=== PATIENT | male | born 1935 | race Caucasian/White ===

== ENCOUNTER 2018-01-07 11:47 | Observation (INO) ==
--- NOTE | 2018-01-07 11:58 | ED ---
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 Patient states that he does not have a primary care physician locally, that he only follows up with Dr. Ponce chew his oncologist. Patient has had dyspnea worsening progressively over the past week or so, to the point now that he has to increase his 2 L nasal cannula home oxygen to 4 L and has had a decrease in his ability to perform activities of daily living. Generalized weakness associated with copious amount of productive whitish sputum , denied fever. MD Complaint: Reports shortness of breath Onset (ago): day(s) (3) Context: Reports other (Worsening) Severity: moderate Consistency/Duration: progressively worsening Relieving factors: oxygen and upright position Exacerbating factors: lying flat and exertion Known history of: Reports congestive heart failure Associated symptoms: Reports denies other symptoms Treatment prior to arrival: Reports oxygen Related Data Home Medications Medication Instructions Recorded Confirmed Unable to Obtain Home Meds 01/07/18 01/07/18 Allergies Allergy/AdvReac Type Severity Reaction Status Date / Time penicillin G Allergy Severe SWELLS UP Verified 01/07/18 11:48 clindamycin Allergy Unknown Swelling Verified 01/07/18 11:48 Review of Systems ROS: all other systems reviewed are negative PMFSH History History Provided By: Patient Medical History Medical History Bilateral cataracts (Acute) CLL (chronic lymphocytic leukemia) (Acute) History of chemotherapy (Acute) History of kidney cancer (Acute) History of nephrectomy, unilateral (Acute) Lung abnormality (Acute) Surgical History Surgical History History of Agustin-en-Y gastric bypass (Acute) Hx of right knee surgery (Acute) Social History Social History Substance History: No History of Abuse Smoking Status: Former smoker How Often Do You Have a Drink Containing Alcohol: Never Recent Travel in [facility] within the Last 8 Weeks: No Recent Out of Country Travel within the Last 8 Weeks: No Exam Narrative Exam Narrative: GENERAL: Elderly male oxygen dependent wheelchair- bound had difficulty transferring himself from wheelchair to gurney and required nearly full assistance (high fall risk). SKIN: Warm and dry. HEAD: Atraumatic. Normocephalic. EYES: Pupils equal and round. No scleral icterus. No injection or drainage. ENT: No nasal bleeding or discharge. Mucous membranes pink and moist. NECK: Trachea midline. No JVD. CARDIOVASCULAR: Irregularly irregular rhythm non-tachycardic rate . no rubs or gallops RESPIRATORY: No accessory muscle use. Diffuse rhonchi bilaterally on auscultation. Tidal volume decreased bilaterally. GASTROINTESTINAL: Abdomen soft, non-tender, nondistended. No rebound or guarding MUSCULOSKELETAL: Extremities without clubbing, cyanosis, or 3+ pitting edema to bilateral lower extremities extending up to his scrotum . No obvious deformities. Patient is wearing below the knee TOYIN stockings NEUROLOGICAL: Awake and alert. No obvious cranial nerve deficits. Motor grossly within normal limits. four out of 5 muscle strength in the arms and legs. Normal speech. PSYCHIATRIC: Appropriate mood and affect; insight and judgment normal. Course Initial Documented Vital Signs Temperature 97.5 F L 01/07/18 11:49 Pulse Rate 65 01/07/18 11:49 Respiratory Rate 18 01/07/18 11:49 Blood Pressure 131/62 01/07/18 11:49 Pulse Oximetry 96 01/07/18 11:49 Last Documented Vital Signs Temperature 97.5 F L 01/07/18 11:49 Pulse Rate 76 01/07/18 14:38 Respiratory Rate 18 01/07/18 14:38 Blood Pressure 122/56 L 01/07/18 14:38 Pulse Oximetry 99 01/07/18 14:38 Critical Care Time Critical Care Time: Yes Total Critical Care Time: 60 Attestation: Aggregate critical care time was [60] minutes. Time to perform other separately billable procedures was not included in the critical care time. My time did not include minutes spent treating any other patients simultaneously or on activities that did not directly contribute to the patient's treatment. The services I provided to this patient were to treat and/or prevent clinically significant deterioration I provided critical care services requiring my management, as noted below: Chart data review, documentation time, medication orders and management, vital sign assessments/reviewing monitor data, ordering and reviewing lab tests, ordering and interpreting/reviewing x-rays and diagnostic studies, care of the patient and discussion of the patient with the admitting physicians. Medical Decision Making MDM Narrative Medical decision making narrative: The patient had blood work performed by Dr. Ponce on January 05 showing a WBC of 32,000 hemoglobin and hematocrit of 8.9/ 27.7 platelet count of 138 lymphocytes shift of 81% Sodium 125 potassium 4.4, chloride 83 bicarb 36 BUN 16 creatinine 0.5 calcium 8 random glucose 128 creatinine clearance estimated 176 with an 85-125 be in the normal range. LDH of 140 which is within the normal range of 87 1, normal AST ALT alk phos and bilirubin. INR 1.9 patient is on Coumadin Today the patient has a leukocytosis of 34.8, H&H stable at 8.7/26.6, relative thrombocytopenia 133,000 similar to an relatively unchanged numbers when compared with an January 05 lab test done by Dr[address] Ponce. Hyponatremia 125, creatinine 1.46 with a GFR greater than 89 Normal liver enzymes. neg cardiac enzymes. INR 2.7 Chest x-ray read by radiologist as chronic interstitial changes within the parenchyma. Heart is mildly enlarged. Xlwkis-k-Acyl in place in the right chest. dr graff contacted to discuss case , in particular the need for possible antibiotics due to leukocytosis or if its related to leukemia and can be witheld and continue evaluation original call at [phone].... At 1445 Dr. Manley called back, she is treasury manager/oncologist oracle manufacturing consultant, who is able to review Dr. Ponce's notes and the laboratory values for this patient and in her opinion was more likely to be related to the leukemia and not to be in any leukostasis. This patient has gotten as high as a million leukocytes in the past and has received treatment twice with good results. thus far no findings of pneumonia, uti, or flu...negative lactic acid on evaluation. States that his primary care in [place] does not provide him with a prescription for Lasix on a regular basis because the patient had a nephrectomy and has a solitary kidney. So essentially the primary waits until the patient is an exacerbation to provide him with a few doses of Lasix. On chart review going back to 2005 in 2013 imaging are of a VQ scan renal ultrasound chest CT however no evidence of any echocardiogram or any other studies to confirm the patient's history of CHF..... (Of note the CT chest performed on the patient back in 2013 revealed airspace consolidation in the right lower lobe associated small right pleural effusion with parietal pleural thickening as well as enlarged bilateral axillary lymph nodes and a moderate splenomegaly) Medical Screen Exam Complete: Yes Emergency Medical Condition: Yes Medical Records Medical records reviewed: Yes I reviewed the patient's medical records. Patient was seen by Dr. Ponce on April 2017 he was noted to have a previous history of hypertension diabetes type 2 congestive heart failure BPH, right lower extremity DVT, arthritis, chronic lymphocytic leukemia, renal cell cancer left nephrectomy 2005, Patient has allergies to penicillin Lab Data Result diagrams: 01/07/18 12:55 01/07/18 12:55 Lab Results 01/07/18 01/07/18 01/07/18 Range/Units 12:55 12:55 13:35 CBC w Diff Slide review pending WBC 34.8 H (4.0-11.0) th/mm3 RBC 2.88 L (4.50-5.90) mil/mm3 Hgb 8.7 L (13.0-17.0) gm/dL Hct 26.6 L (39.0-51.0) % MCV 92.2 (80.0-100.0) fL MCH 30.1 (27.0-34.0) pg MCHC 32.7 (32.0-36.0) % RDW 14.8 (11.6-17.2) % Plt Count 133 L (150-450) th/mm3 MPV 7.0 (7.0-11.0) fL Neut % (Auto) 10.0 L (16.0-70.0) % Lymph % (Auto) 87.2 H (9.0-44.0) % [place] % (Auto) 2.1 (0.0-8.0) % Eos % (Auto) 0.0 (0.0-4.0) % Baso % (Auto) 0.7 (0.0-2.0) % Neut # (Auto) 3.5 (1.8-7.7) th/mm3 Lymph # (Auto) 30.4 H (1.0-4.8) th/mm3 [place] # (Auto) 0.7 (0.0-0.9) th/mm3 Eos # (Auto) 0.0 (0.0-0.4) th/mm3 Baso # (Auto) 0.2 (0.0-0.2) th/mm3 WBC Differential Manual diff final Seg Neuts % (Manual) 10 L (16-70) % Lymphocytes % (Manual) 89 H (9-44) % Monocytes % (Manual) 1 (0-8) % Abs Neuts (Manual) 3.5 (1.8-7.7) th/mm3 Differential Comment . Smudge Cells Present H (None) Platelet Estimate Low L (Normal) Platelet Morphology Normal (Normal) Basophilic Stippling Moderate H (None) Ovalocytes 1+ H (None) Rouleaux Present H (None) PT (9.8-11.6) sec INR Ratio APTT (23.4-31.7) sec Sodium 125 L (136-145) meq/L Potassium 4.4 (3.5-5.1) meq/L Chloride 83 L (98-107) meq/L Carbon Dioxide 34.0 H (21.0-32.0) meq/L Anion Gap 8 (5-15) meq/L BUN 16 (7-18) mg/dL Creatinine 0.46 L (0.60-1.30) mg/dL Estimated GFR Greater than 89 (>89) mL/min Random Glucose 111 H (74-106) mg/dL Lactic Acid 0.5 (0.4-2.0) mmol/L Calcium 7.9 L (8.5-10.1) mg/dL Total Bilirubin 0.7 (0.2-1.0) mg/dL AST 16 (15-37) U/L ALT 12 (12-78) U/L Alkaline Phosphatase 93 (45-117) U/L Total Creatine Kinase 40 (39-308) U/L Troponin I Less than 0.02 L (0.02-0.05) ng/mL Total Protein 5.1 L (6.4-8.2) g/dL Albumin 3.0 L (3.4-5.0) g/dL 01/07/18 Range/Units 13:35 CBC w Diff WBC (4.0-11.0) th/mm3 RBC (4.50-5.90) mil/mm3 Hgb (13.0-17.0) gm/dL Hct (39.0-51.0) % MCV (80.0-100.0) fL MCH (27.0-34.0) pg MCHC (32.0-36.0) % RDW (11.6-17.2) % Plt Count (150-450) th/mm3 MPV (7.0-11.0) fL Neut % (Auto) (16.0-70.0) % Lymph % (Auto) (9.0-44.0) % [place] % (Auto) (0.0-8.0) % Eos % (Auto) (0.0-4.0) % Baso % (Auto) (0.0-2.0) % Neut # (Auto) (1.8-7.7) th/mm3 Lymph # (Auto) (1.0-4.8) th/mm3 [place] # (Auto) (0.0-0.9) th/mm3 Eos # (Auto) (0.0-0.4) th/mm3 Baso # (Auto) (0.0-0.2) th/mm3 WBC Differential Seg Neuts % (Manual) (16-70) % Lymphocytes % (Manual) (9-44) % Monocytes % (Manual) (0-8) % Abs Neuts (Manual) (1.8-7.7) th/mm3 Differential Comment Smudge Cells (None) Platelet Estimate (Normal) Platelet Morphology (Normal) Basophilic Stippling (None) Ovalocytes (None) Rouleaux (None) PT 27.5 H (9.8-11.6) sec INR 2.7 Ratio APTT 45.5 H (23.4-31.7) sec Sodium (136-145) meq/L Potassium (3.5-5.1) meq/L Chloride (98-107) meq/L Carbon Dioxide (21.0-32.0) meq/L Anion Gap (5-15) meq/L BUN (7-18) mg/dL Creatinine (0.60-1.30) mg/dL Estimated GFR (>89) mL/min Random Glucose (74-106) mg/dL Lactic Acid (0.4-2.0) mmol/L Calcium (8.5-10.1) mg/dL Total Bilirubin (0.2-1.0) mg/dL AST (15-37) U/L ALT (12-78) U/L Alkaline Phosphatase (45-117) U/L Total Creatine Kinase (39-308) U/L Troponin I (0.02-0.05) ng/mL Total Protein (6.4-8.2) g/dL Albumin (3.4-5.0) g/dL Imaging Data Radiologist's impression: Chest X-Ray 01/07/18 11:53 CONCLUSION: Chronic interstitial changes within the parenchyma. Mgoard-l-Gsjh in good position. ECG Data EKG Prior to Arrival: No Attestation: I personally reviewed and interpreted this ECG as follows: Prior ECG tracings: not available for review Interpretation: Atrial fibrillation with slow rate estimated in the 50s, no acute ST elevation AK pattern noted Discharge Plan Discharge Disposition Patient Disposition: 30 Still Patient Discharge Condition Condition: Fair Discharge Details Diagnosis: Dyspnea on minimal exertion, Hyponatremia, Generalized muscle weakness Physicians Team ED Provider: Cameron Xiong Attending Provider: Chris Arizmendi Status ED Status: Admitted Observation Patient
[2018-01-07 13:09] LABS: Baso # (Auto) 0.2 th/mm3 (0.0-0.2); Baso % (Auto) 0.7 % (0.0-2.0); Hematocrit 26.6 % (39.0-51.0); Hemoglobin 8.7 gm/dL (13.0-17.0); Lymph # (Auto) 30.4 th/mm3 (1.0-4.8); Lymph % (Auto) 87.2 % (9.0-44.0); Mean Corpuscular HGB Conc 32.7 % (32.0-36.0); Mean Corpuscular Hemoglobin 30.1 pg (27.0-34.0); Mean Corpuscular Volume 92.2 fL (80.0-100.0); Mono # (Auto) 0.7 th/mm3 (0.0-0.9); Mono % (Auto) 2.1 % (0.0-8.0); Neut # (Auto) 3.5 th/mm3 (1.8-7.7); Platelet Count 133 th/mm3 (150-450); Red Blood Count 2.88 mil/mm3 (4.50-5.90); Red Cell Distribution Width 14.8 % (11.6-17.2); White Blood Count 34.8 th/mm3 (4.0-11.0)
[2018-01-07 13:17] LABS: Chloride 83 meq/L (98-107); Potassium 4.4 meq/L (3.5-5.1); Sodium 125 meq/L (136-145)
[2018-01-07 13:20] LABS: Calcium 7.9 mg/dL (8.5-10.1)
[2018-01-07 13:21] LABS: Anion Gap 8 meq/L (5-15); Blood Urea Nitrogen 16 mg/dL (7-18); Glucose,Random 111 mg/dL (74-106)
[2018-01-07 13:24] LABS: Alanine Aminotransferase 12 U/L (12-78); Aspartate Aminotransferase 16 U/L (15-37); Glomerular Filtration Rate Greater Than 89 mL/min (>89)
[2018-01-07 13:25] LABS: Total Protein 5.1 g/dL (6.4-8.2)
[2018-01-07 13:27] LABS: Alkaline Phosphatase 93 U/L (45-117)
[2018-01-07 13:30] LABS: Basophilic Stippling Moderate; Lymphocytes 89 % (9-44); Monocytes 1 % (0-8); Ovalocytes 1+
--- NOTE | 2018-01-07 13:30 | XR ---
EXAM DATE: 01/07/2018 12:26 PM EST AGE/SEX: 82 years / Male INDICATIONS: Shortness of breath. CLINICAL DATA: This is the patient's initial encounter. Patient reports that signs and symptoms have been present for 1 day and indicates a pain score of 0/10. MEDICAL/SURGICAL HISTORY: . Lymphocytic leukemia. Kidney cancer. . Nephrectomy. Infusaport. COMPARISON: [facility] – [place], CHEST SINGLE AP, 12/15/2013. . FINDINGS: There is an Ogimir-p-Hedj in place in the right chest. The port appears in satisfactory position. The heart is mildly enlarged. There are diffuse chronic bring interstitial changes. The visualized lisa ny structures demonstrate degenerative changes but are otherwise intact. CONCLUSION: Chronic interstitial changes within the parenchyma. Bttudf-x-Qhgz in good position. Electronically signed by: Jayro Lemus MD 01/07/2018 1:28 PM EST
[2018-01-07 13:31] LABS: Platelet Morphology Normal (Normal); Rouleaux Present; Smudge Cells Present
[2018-01-07 13:34] LABS: Creatine Kinase 40 U/L (39-308)
[2018-01-07 14:17] LABS: Activated Partial Thrombo Time 45.5 sec (23.4-31.7); INR 2.7 Ratio; Prothrombin Time 27.5 sec (9.8-11.6)
[2018-01-07] MEDS ORDERED: Levofloxacin 250 mg Premix Inj 250 MG/50 ML PIGGYBACK IV.SIG ONE (15:23)
[2018-01-07] MEDS ORDERED: Acetaminophen 325 MG Tablet PO PRN (15:50)
--- NOTE | 2018-01-07 16:21 | P.HP ---
History of Present Illness Primary Care Physician: Reed Davis Chief Complaint: Dyspnea History of Present Illness: This is an 82-year-old male patient with a known medical history of CLL, history of kidney cancer status post nephrectomy and chronic respiratory failure on home oxygen who presented to the ED with worsening shortness of breath especially with exertion. Patient also admits to increasingly worsening bilateral lower extremity swelling. It is questionable whether patient has a history of congestive heart failure, patient was recently prescribed Lasix twice weekly for increasing swelling in his lower legs. It is questionable whether there is been a official diagnosis. He does also complain of generalized weakness as well as productive cough. Patient and his are here from [place], they're snowbirds and spent 6 months here locally. He does have a history of CLL, follows with oncologist Dr. Bains, was last seen today and lab work done patient states he is unable to walk several feet without becoming shortness of breath, he uses 2 L nasal cannula of home oxygen and has been requiring increased use over the past couple days. It should be noted the patient does not follow with a tomato grader at home either, states that he does not know why he is on home oxygen, denies a history of COPD. Patient also does have a history of left lower extremity DVT over 30 years ago with antiphospholipid syndrome for which he is on Coumadin therapy. Will attempt to obtain records from his PCP in [place]. - Diagnosis (1) CLL (chronic lymphocytic leukemia) (2) Dyspnea on minimal exertion (3) Hyponatremia (4) Generalized muscle weakness Review of Systems All other systems reviewed negative except as stated in HPI PMFSH - History History Provided By: Patient - Medical History Medical History: Medical History (Last Reviewed 01/07/18 @ 17:23 by Mary Alice Meza) Bilateral cataracts CLL (chronic lymphocytic leukemia) History of chemotherapy History of kidney cancer History of nephrectomy, unilateral Lung abnormality - Surgical History Surgical History: Surgical History (Last Reviewed 01/07/18 @ 17:23 by Mary Alice Meza) History of Agustin-en-Y gastric bypass Hx of right knee surgery - Family History Family History: Family History (Last Updated 01/07/18 @ 17:23 by Mary Alice Meza) Other Family history non-contributory - Social History I have reviewed the patient's Social History: Yes - Tobacco History Smoking Status: Former smoker - Alcohol History How Often Do You Have a Drink Containing Alcohol: Never - Substance Use History Substance History: No History of Abuse - Travel History Recent Travel in the [place] Within the Last 8 Weeks: No Recent Travel Out of the Country Within the Last 8 Weeks: No - Immunization History Tetanus Immunization: Unsure Medications and Allergies Active Medications: Active Medications Acetaminophen (Tylenol) 650 mg PO Q4H PRN PRN Reason: Temp > 100.4 Levofloxacin/Dextrose (Levaquin 250 Mg Premix Inj) 250 mg in 50 mls @ 50 mls/ hr IV.SIG ONCE ONE Stop: 01/07/18 16:22 Last Admin: 01/07/18 15:46 Dose: 50 mls/hr Ondansetron HCl (Zofran Inj) 4 mg IV.PUSH Q6H PRN PRN Reason: NAUSEA OR VOMITING Sodium Chloride (Ns Flush) 2 ml IV.FLUSH BID ROSELYN Sodium Chloride (Ns Flush) 2 ml IV.FLUSH PRN PRN PRN Reason: FLUSH AFTER USING IV ACCESS Allergies Allergy/AdvReac Type Severity Reaction Status Date / Time penicillin G Allergy Severe SWELLS UP Verified 01/07/18 11:48 clindamycin Allergy Unknown Swelling Verified 01/07/18 11:48 Home Medications Medication Instructions Recorded Confirmed Type losartan-hydrochlorothiazide 0.5 tab PO DAILY 01/07/18 01/07/18 History tamsulosin 0.4 mg PO DAILY 01/07/18 01/07/18 History warfarin 7.5 mg PO EVERY OTHER DAY 01/07/18 01/07/18 History warfarin 10 mg PO EVERY OTHER DAY 01/07/18 01/07/18 History Exam Vital signs: Vital Signs 01/07/18 11:49 01/07/18 12:26 01/07/18 14:38 Temperature 97.5 F L Pulse Rate 65 57 L 76 Respiratory Rate 18 18 Blood Pressure 131/62 122/56 L Pulse Oximetry 96 99 99 Intake & Output 01/06/18 01/07/18 01/07/18 18:59 06:59 18:59 Weight 94 kg Narrative: GENERAL: Well-developed, well-nourished patient in NAD. On supplemental o2. SKIN: Warm and dry. No rash. Right chest port in place, clean dry and intact. HEAD: Normocephalic. Atraumatic. EYES: Pupils equal and round. No scleral icterus. No injection or drainage. ENT: No nasal bleeding or discharge. Mucous membranes pink and moist. NECK: Supple. Trachea midline. CARDIOVASCULAR: Regular rate and rhythm. S1, S2 noted. RESPIRATORY: Crackles in posterior lower base. Rhonchi throughout. Breath sounds equal bilaterally. Barrel chest. GASTROINTESTINAL: Abdomen soft, non-tender. Normoactive bowel sounds x4. MUSCULOSKELETAL: No obvious deformities. Extremities without clubbing, cyanosis. Bilateral lower extremity edema 3+. NEUROLOGICAL: Awake and alert. No obvious cranial nerve deficits. Motor grossly within normal limits. 5/5 muscle strength in bilateral upper and lower extremities. Normal speech. PSYCHIATRIC: Appropriate mood and affect; insight and judgment normal. Results - Labs CBC & Chem 7: 01/07/18 12:55 01/07/18 12:55 Labs: Laboratory Results - last 24 hr 01/07/18 01/07/18 01/07/18 12:55 12:55 13:35 CBC w Diff Slide review pending WBC 34.8 H RBC 2.88 L Hgb 8.7 L Hct 26.6 L MCV 92.2 MCH 30.1 MCHC 32.7 RDW 14.8 Plt Count 133 L MPV 7.0 Neut % (Auto) 10.0 L Lymph % (Auto) 87.2 H [place] % (Auto) 2.1 Eos % (Auto) 0.0 Baso % (Auto) 0.7 Neut # (Auto) 3.5 Lymph # (Auto) 30.4 H [place] # (Auto) 0.7 Eos # (Auto) 0.0 Baso # (Auto) 0.2 WBC Differential Manual diff final Seg Neuts % (Manual) 10 L Lymphocytes % (Manual) 89 H Monocytes % (Manual) 1 Abs Neuts (Manual) 3.5 Differential Comment . Smudge Cells Present H Platelet Estimate Low L Platelet Morphology Normal Basophilic Stippling Moderate H Ovalocytes 1+ H Rouleaux Present H PT INR APTT Sodium 125 L Potassium 4.4 Chloride 83 L Carbon Dioxide 34.0 H Anion Gap 8 BUN 16 Creatinine 0.46 L Estimated GFR Greater than 89 Random Glucose 111 H Lactic Acid 0.5 Calcium 7.9 L Total Bilirubin 0.7 AST 16 ALT 12 Alkaline Phosphatase 93 Total Creatine Kinase 40 Troponin I Less than 0.02 L Total Protein 5.1 L Albumin 3.0 L 01/07/18 13:35 CBC w Diff WBC RBC Hgb Hct MCV MCH MCHC RDW Plt Count MPV Neut % (Auto) Lymph % (Auto) [place] % (Auto) Eos % (Auto) Baso % (Auto) Neut # (Auto) Lymph # (Auto) [place] # (Auto) Eos # (Auto) Baso # (Auto) WBC Differential Seg Neuts % (Manual) Lymphocytes % (Manual) Monocytes % (Manual) Abs Neuts (Manual) Differential Comment Smudge Cells Platelet Estimate Platelet Morphology Basophilic Stippling Ovalocytes Rouleaux PT 27.5 H INR 2.7 APTT 45.5 H Sodium Potassium Chloride Carbon Dioxide Anion Gap BUN Creatinine Estimated GFR Random Glucose Lactic Acid Calcium Total Bilirubin AST ALT Alkaline Phosphatase Total Creatine Kinase Troponin I Total Protein Albumin - Imaging Impressions Chest X-Ray 01/07/18 11:53 CONCLUSION: Chronic interstitial changes within the parenchyma. Wymqfr-a-Dahu in good position. Caprini VTE Risk Assessment Caprini VTE Risk Assessment: Moderate/High Risk (score >= 2) Caprini Risk Assessment Model: Point Value = 1 Point Value = 2 Point Value = 3 Point Value = 5 Age 41-60 Minor surgery BMI > 25 kg/m2 Swollen legs Varicose veins or History of unexplained or recurrent spontaneous Oral contraceptives or hormone replacement Sepsis (< 1 month) Serious lung disease, including pneumonia (< 1 month) Abnormal pulmonary function Acute myocardial infarction Congestive heart failure (< 1 month) History of inflammatory bowel disease Medical patient at bed rest Age 61-74 Arthroscopic surgery Major open surgery (> 45 min) Laparoscopic surgery (> 45 min) Malignancy Confined to bed (> 72 hours) Immobilizing plaster cast Central venous access Age >= 75 History of VTE Family history of VTE Factor V Leiden Prothrombin [id number] Lupus anticoagulant Anticardiolipin antibodies Elevated serum homocysteine Heparin-induced thrombocytopenia Other congenital or acquired thrombophilia Stroke (< 1 month) Elective arthroplasty Hip, pelvis, or leg fracture Acute spinal cord injury (< 1 month) Prophylaxis Regimen: Total Risk Factor Score Risk Level Prophylaxis Regimen 0-1 Low Early ambulation 2 Moderate Order ONE of the following: *Sequential Compression Device (SCD) *Heparin 5000 units SQ BID 3-4 Higher Order ONE of the following medications: *Heparin 5000 units SQ TID *Enoxaparin/Lovenox 40 mg SQ daily (WT < 150 kg, CrCl > 30 mL/min) *Enoxaparin/Lovenox 30 mg SQ daily (WT < 150 kg, CrCl > 10-29 mL/min) *Enoxaparin/Lovenox 30 mg SQ BID (WT < 150 kg, CrCl > 30 mL/min) AND/OR *Sequential Compression Device (SCD) 5 or more Highest Order ONE of the following medications: *Heparin 5000 units SQ TID (Preferred with Epidurals) *Enoxaparin/Lovenox 40 mg SQ daily (WT < 150 kg, CrCl > 30 mL/min) *Enoxaparin/Lovenox 30 mg SQ daily (WT < 150 kg, CrCl > 10-29 mL/min) *Enoxaparin/Lovenox 30 mg SQ BID (WT < 150 kg, CrCl > 30 mL/min) AND *Sequential Compression Device (SCD) Assessment and Plan - Assessment (1) CLL (chronic lymphocytic leukemia) Code(s): C91.90 - Lymphoid leukemia, unspecified not having achieved remission Status: Acute (2) Dyspnea on minimal exertion Code(s): R06.09 - Other forms of dyspnea Status: Acute (3) Hyponatremia Code(s): E87.1 - Hypo-osmolality and hyponatremia Status: Acute (4) Generalized muscle weakness Code(s): M62.81 - Muscle weakness (generalized) Status: Acute - Plan This is an 82-year-old male patient who presented to the ED with complaints of worsening shortness of breath especially with exertion. Possible congestive heart failure, unknown type with exacerbation -Presents with a 1-week complaint of worsening shortness of breath with exertion and worsening bilateral lower extremity swelling. BNP on presentation 176. -CXR reviewed showing interstitial changes. On exam, crackles are present. Appears to be fluid overloaded. -Consulted senior relationship manager, does not follow with a senior relationship manager. Input and recommendations pending. -Lasix 20 mg IV given in ED. Started daily. Monitor intake and output. Strict I& O. Fluid restriction 1.5L daily. -ECHO ordered and pending. Follow. Chronic respiratory failure on home oxygen, 2L [place] Questionable history of COPD Bronchitis with productive cough, questionable pneumonia -CXR reviewed, findings as above. -Does not follow with a tomato grader, has been placed on home O2 this year. Unknown reason why per patient. -Consult placed to tomato grader, input and recommendations pending. -Sputum culture ordered. -Was placed on Levaquin in ED. Continued. -Duonebs as needed for shortness of breath. -Blood cultures ordered and pending. Follow. -Chest CT ordered, pending. Follow. History of CLL Chronic leukocytosis -Consulted Dr. Bains, whom he follows with outpatient. Appreciate input and recommendations. History of renal cell carcinoma status post nephrectomy -Stable kidney function. -Avoid nephrotoxins. -Monitor closely especially being on diuretics. History of DVT History of antiphospholipid syndrome -Continue Coumadin. INR therapeutic. DVT Prophylaxis: SCDs, Coumadin.
[2018-01-07] MEDS ORDERED: Warfarin Consult Pharmacy OTHER PRN (16:23)
[2018-01-07 19:40] LABS: Bilirubin,Urine Negative (Negative); Clarity,Urine Clear (Clear); Color,Urine Yellow (Yellw/Straw); Glucose,Urine (UA) Negative (Negative); Leukocyte Esterase,Urine Negative (Negative); Nitrite,Urine Negative (Negative); Urobilinogen,Urine 0.2 mg/dL (Less than 2)
[2018-01-07 19:46] LABS: Squamous Epithelial Cell,Urine 0-5 /hpf (0-5)
--- NOTE | 2018-01-07 20:29 | MB ---
cc: Manuelito Bains MD DATE: 01/07/2018 REASON FOR CONSULTATION: Oncology consult to render opinion regarding patient with chronic lymphocytic leukemia, admitted with heart failure. HISTORY OF PRESENT ILLNESS: The patient is a very pleasant 82-year-old male with history of chronic lymphocytic leukemia and renal cell carcinoma, status post left nephrectomy, presented to the office today for followup. He just came back from [place] a few weeks ago. The patient and his are both very poor historian. The last time I saw the patient in the summer, he was not on oxygen and he was quite functional. Apparently over the summer, he has developed worsening shortness of breath and had been admitted to the hospital in [place], but he could not tell me why. He was then started on oxygen. Over the last few weeks, he stated that he has worsening shortness of breath and he is not able to get enough oxygen from his portable concentrator. He also has increased weakness and not very active. He came in with a wheelchair to the office and he could hardly talk due to shortness of breath. He stated is lower extremity has been swollen. He also endorse orthopnea and paroxysmal nocturnal dyspnea. He stated he was given a diuretic, but he has not started taking it. He was directed to the emergency room and subsequently admitted. PAST MEDICAL HISTORY: 1. Chronic lymphocytic leukemia, diagnosed in 2004. 2. Right lower extremity deep venous thrombosis. 3. Antiphospholipid antibody positive. 4. Osteoarthritis. 5. Benign prostatic hypertrophy. 6. Congestive heart failure. 7. Diabetes mellitus. 8. Hypertension. 9. Renal cell carcinoma. PAST SURGICAL HISTORY: 1. Left nephrectomy in 2005. 2. Gastric bypass surgery. 3. Port placement. 4. Tonsillectomy. 5. Right knee surgery. FAMILY HISTORY: Father had colon cancer. SOCIAL HISTORY: He had a [id number] smoking history, quit 35 years ago. Denies alcohol use. He lives with his . His spends his bell in the [place] area. ALLERGIES: PENICILLIN AND CLINDAMYCIN. CURRENT MEDICATIONS: 1. DuoNeb. 2. Lasix. 3. Flomax. 4. Warfarin. REVIEW OF SYSTEMS: CONSTITUTIONAL: As above. EYES: Negative. ENT: Negative. CARDIOVASCULAR: As above. RESPIRATORY: As above. GASTROINTESTINAL: Negative. GENITOURINARY: Negative. MUSCULOSKELETAL: Chronic joint ache. HEMATOLOGIC: As above. ENDOCRINE: Negative. DERMATOLOGIC: Negative. PSYCHIATRIC: Negative. NEUROLOGIC: Negative. PHYSICAL EXAMINATION: VITAL SIGNS: Temperature 97.5, blood pressure 113/51, O2 saturation 90% on 2 liters nasal cannula. GENERAL: He is alert, oriented x3. He is very weak. HEENT: Atraumatic, normocephalic. Pupils are equal, round, regular. Extraocular muscles are intact. No scleral icterus. Oropharynx dry mucosa. No lesion. NECK: No thyromegaly. No palpable mass. LYMPHATIC: No palpable cervical, clavicular, axillary, or inguinal lymph nodes. CARDIOVASCULAR: Irregularly irregular S1, S2. LUNGS: Diminished breath sounds in lung bases. ABDOMEN: Soft, nontender. Difficult to palpate liver or spleen. EXTREMITIES: He has 3+ lower extremity edema. No calf tenderness. SKIN: Decreased skin turgor. NEUROLOGIC: Nonfocal. LABORATORY DATA: WBC 34.8, hemoglobin 8.7, platelet count 133. INR 2.7, creatinine of 0.46, sodium 125. BNP of 176. ASSESSMENT AND PLAN: 1. Chronic lymphocytic leukemia diagnosed 2004. His white blood cell count trended to 160,00 to 2012 and he received Rituxan with good response. In 2017, he had relapsed disease and white blood cell count trending up to 100,000 and he received another course of Rituxan, again with good response. He has been monitored closely. Today, his white blood cell count trended up to 34,000, but I think it is partly a reactive process. We will continue to monitor him for now. 2. 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 His hemoglobin is relatively stable at 8.7. We will monitor him closely for signs of hemolysis. 3. Chronic thrombocytopenia due to chronic lymphocytic leukemia. His platelet count is still fluctuating. Clinically, he has no bleeding. 4. History of left renal cell carcinoma, clear cell type, status post left nephrectomy in 2005. He has no recurrent disease. 5. History of right lower extremity venous thrombosis. He has antiphospholipid antibody. He has been on Coumadin. His INR is therapeutic. No evidence of recurrent clot at this time. 6. Shortness of breath, which has been progressively getting worse over the last few weeks. He is in congestive heart failure. He has significant lower extremity edema. He was started on diuretic and his edema has improved. He is awaiting a cardiology evaluation. RECOMMENDATIONS: 1. Continue to monitor CBC. No intervention for chronic lymphocytic leukemia plan at this time. 2. Monitor for signs of hemolysis. 3. Continue management of congestive heart failure per primary team. 4. Discussed case with the primary team. Thank you CARLA Romero for asking me to see this patient. MD TALI Paez/em , 05:54 PM , 06:10 PM [email or web address]
--- NOTE | 2018-01-07 21:10 | CT ---
EXAM DATE: 01/07/2018 8:58 PM EST AGE/SEX: 82 years / Male INDICATIONS: Short of breath. Evaluate for pneumonia. CLINICAL DATA: This is the patient's initial encounter. Patient reports that signs and symptoms have been present for 4 - 6 days and indicates a pain score of 2/10. MEDICAL/SURGICAL HISTORY: Leukemia. Renal cell carcinoma. Deep venous thrombosis. Gastric bypass. Nephrectomy, left. RADIATION DOSE: 9.93 CTDI (mGy) COMPARISON: [facility] – [place], CT THORAX W/O CONTRAST, 12/03/2013. . TECHNIQUE: Multiple contiguous axial images were obtained through the chest without contrast. Image s were obtained in suspended respiration using multiple row detector helical technique. Using automa daria exposure control and adjustment of the mA and/or kV according to patient size, radiation dose was kept as low as reasonably achievable to obtain optimal diagnostic quality images. DICOM format imag e data is available electronically for review and comparison. FINDINGS: Lungs: The lungs are symmetrically aerated. There is mild consolidation in the posterior left lower lobe. There is consolidation in the right lower lobe with rounded appearance and several calcificatio ns most consistent with rounded atelectasis. Mediastinum: There is good visualization of the great vessels of the middle mediastinum. No evidenc e of mediastinal or hilar adenopathy/mass. The heart size is moderately enlarged. There are coronary artery calcifications. There are calcified mediastinal and hilar lymph nodes. Coronary artery calcifi cations are present under the Pleurae: There is a moderate-sized left pleural effusion and small right pleural effusion. Axillae: Unremarkable. Bony Structures: Osteopenia, degenerative change and scoliosis are noted. There are multiple subtle widespread lytic lesions noted in the vertebral bodies and ribs. Miscellaneous: The examination was extended to include the upper abdomen, and both adrenal glands ar e normal in size and configuration. CONCLUSION: 1. Multiple widespread lytic lesions in bones consistent with metastatic disease. 2. Moderate size left effusion and small right pleural effusion. 3. Area of apparent rounded atelectasis in the right lower lobe. This was present on the remote CT. 4. Mild consolidation in the left lower lobe which is new. This could represent an early pneumonia. 5. Moderate cardiomegaly with no evidence of pulmonary edema. Electronically signed by: Nick Escobar MD 01/07/2018 9:09 PM EST
[2018-01-08 06:10] LABS: Baso # (Auto) 0.6 th/mm3 (0.0-0.2); Baso % (Auto) 2.4 % (0.0-2.0); Eos % (Auto) 0.2 % (0.0-4.0); Hematocrit 25.3 % (39.0-51.0); Hemoglobin 8.3 gm/dL (13.0-17.0); Lymph # (Auto) 19.5 th/mm3 (1.0-4.8); Lymph % (Auto) 83.6 % (9.0-44.0); Mean Corpuscular HGB Conc 32.9 % (32.0-36.0); Mean Corpuscular Hemoglobin 30.2 pg (27.0-34.0); Mean Platelet Volume 7.4 fL (7.0-11.0); Mono # (Auto) 0.6 th/mm3 (0.0-0.9); Mono % (Auto) 2.4 % (0.0-8.0); Neut # (Auto) 2.7 th/mm3 (1.8-7.7); Neut % (Auto) 11.4 % (16.0-70.0); Platelet Count 119 th/mm3 (150-450); Red Blood Count 2.76 mil/mm3 (4.50-5.90); Red Cell Distribution Width 14.8 % (11.6-17.2); White Blood Count 23.4 th/mm3 (4.0-11.0)
[2018-01-08 06:16] LABS: Chloride 83 meq/L (98-107); Potassium 3.9 meq/L (3.5-5.1); Sodium 126 meq/L (136-145)
[2018-01-08 06:19] LABS: Prothrombin Time 29.8 sec (9.8-11.6)
[2018-01-08 06:20] LABS: Calcium 7.6 mg/dL (8.5-10.1)
[2018-01-08 06:21] LABS: Anion Gap 5 meq/L (5-15); Blood Urea Nitrogen 16 mg/dL (7-18); Carbon Dioxide 37.8 meq/L (21.0-32.0); Glucose,Random 109 mg/dL (74-106)
[2018-01-08 06:24] LABS: Glomerular Filtration Rate Greater Than 89 mL/min (>89)
[2018-01-08 06:45] LABS: Platelet Morphology Normal (Normal)
--- NOTE | 2018-01-08 07:26 | MB ---
cc: Esdras Baiely MD DATE: 01/08/2018 I have reviewed hospital records and spoke with the patient. HISTORY OF PRESENT ILLNESS: The patient is a pleasant 82-year-old white man I am seeing for possible congestive heart failure. The patient is a snowbird from [place]. He is followed by Dr. Bains for chronic lymphocytic leukemia and renal cell carcinoma. The patient has underlying lung disease and has been hospitalized in 2003 for this along with edema. Echocardiogram showed normal LV function at that point in time. He has chronic shortness of breath, which has been stable and uses oxygen at home. He noted that his oxygen was not enough when he would walk outside. He has chronic edema and elevates his leg and this may have been worse more recently. He has no other cardiac symptomatology. PAST MEDICAL HISTORY: 1. Atrial fibrillation/flutter, which has been on EKGs at this hospital stay and last, but he does not know about it. 2. Chronic lymphocytic leukemia. 3. Antiphospholipid antibody. 4. Renal cell carcinoma with left nephrectomy. 5. Distant diabetes. 6. Hypertension. 7. Benign prostatic hypertrophy. 8. Osteoarthritis. 9. Prior gastric bypass surgery with reversible. 10. Right knee surgery. 11. Tonsillectomy. FAMILY HISTORY: Noncontributory. SOCIAL HISTORY: He is and a distant smoker and does not drink. ALLERGIES: PENICILLIN, CLINDAMYCIN. He is chronically anticoagulated. He also has chronic anemia, which is hemolytic apparently. MEDICATIONS: List prior to admission included: 1. Tamsulosin. 2. Losartan/hydrochlorothiazide. 3. Warfarin. REVIEW OF SYSTEMS: Remarkable for occasional joint pain, generalized weakness and imbalance and some hearing and visual trouble. DIAGNOSTIC DATA: Chest x-ray showed mild cardiomegaly with chronic interstitial changes. CT of the chest showed multiple widespread lytic lesions, moderate size left and small right pleural effusion. Of note is he did have effusion tap in 2013, atelectasis and mild left lobe consolidation along with moderate cardiomegaly. EKG shows atrial fibrillation with controlled response and no significant changes from prior EKG. There are nonspecific T-wave changes. LABORATORY DATA: He is anemic with hematocrit 26.6 and platelet count of 133,000. INR 2.7. Sodium 125, potassium 4.4, creatinine 0.46. Liver transaminases normal. BNP mildly elevated at 176. Troponin negative. PHYSICAL EXAMINATION: GENERAL: On exam, he is alert and oriented x2. He is a fair historian. VITAL SIGNS: Afebrile. Vital signs stable. HEENT: There are no xanthelasma and oropharyngeal mucosa normal. CHEST: Decreased breath sounds, but no definite wheezes. CARDIOVASCULAR: JVD normal. S1, S2 with an irregular rhythm. There is a 2/6 early to mid peaking systolic ejection murmur at the base. ABDOMEN: Benign. EXTREMITIES: Show 1+ edema. Pulses: Carotids without bruits. Radials 1+. Femorals and pedals not felt. He is not ambulating. PROBLEMS: 1. Shortness of breath/edema - I am not convinced that the patient has congestive heart failure. His BNP level is only mildly elevated and this can be elevated by age along with anemia. He has had these symptoms chronically before and actually was hospitalized for similar in 2013 with normal LV function. I suspect that he has chronic venous insufficiency and underlying lung disease. I would avoid over diuresis at this point in time and would continue him on his home medication. 2. Risk factor modification per primary service. 3. Heart murmur - he may well have [id number] aortic stenosis. 4. Chronic atrial fibrillation/flutter. 5. Hypertension. 6. Leukemia and renal cell carcinoma as above. 7. Prior DVT. 8. Chronic anemia. 9. Hyponatremia. RECOMMENDATIONS: 1. I would recommend to the primary service stopping intravenous diuretics and continuing home medication. I am not convinced this is congestive heart failure. 2. Continue anticoagulation. I would have to leave this to the primary service and hematology given his chronic anemia. 3. Risk factor modification per primary service. 4. The patient is certainly not a candidate for any further invasive workup or treatment. Again, I am not convinced this is congestive heart failure and would avoid diuresis with concentration on his underlying lung disease. I have nothing more to add and we will be available this hospital stay only if needed. All questions answered. Esdras Bailey MD ASG/sv , 06:15 AM , 06:25 AM
--- NOTE | 2018-01-08 12:06 | P.PNIM ---
Subjective Interval history: Follow-up shortness of breath and bilateral lower extremity swelling. Patient seen and examined, sitting up in chair comfortably no apparent distress. Significantly improved from last evening. He is on 2 L nasal cannula for this which is baseline at home. Lung sounds are clear throughout. He is doing much better. Physical therapy worked with patient and recommendations are for rehab due to significant weakness with ambulation. Awaiting pulmonary consult. Physical Exam Vital signs: Vital Signs 01/07/18 12:26 01/07/18 14:38 01/07/18 16:07 Temperature Pulse Rate 57 L 76 79 Respiratory Rate 18 16 Blood Pressure 122/56 L 113/51 L Pulse Oximetry 99 99 01/07/18 20:00 01/07/18 20:15 01/07/18 20:43 Temperature 96.5 F L Pulse Rate 69 79 Respiratory Rate 18 Blood Pressure 110/55 L Pulse Oximetry 100 94 L 01/08/18 00:00 01/08/18 00:04 01/08/18 04:00 Temperature 97.1 F L 96.0 F L Pulse Rate 70 61 55 L Respiratory Rate 20 20 Blood Pressure 129/63 125/59 L Pulse Oximetry 95 97 01/08/18 04:05 01/08/18 07:49 01/08/18 08:00 Temperature 96.9 F L Pulse Rate 54 L 62 71 Respiratory Rate 18 Blood Pressure 133/63 Pulse Oximetry 99 01/08/18 08:16 01/08/18 11:20 Temperature 97.0 F L Pulse Rate 66 Respiratory Rate 18 Blood Pressure 122/58 L Pulse Oximetry 98 98 Intake & Output 01/07/18 01/08/18 01/08/18 18:59 06:59 18:59 Intake Total 250 / 250 120 / 120 Output Total 500 / 500 1100 / 1100 Balance -250 / -250 -980 / -980 Weight 94 kg 94.2 kg Intake: IV 250 / 250 Levaquin 250 mg Premix Inj 250 250 / 250 mg In 50 ml @ 50 mls/hr IV.SIG ONCE ONE Rx#:[id number] Oral 120 / 120 Output: Urine 500 / 500 1100 / 1100 Other: # Voids 1 Date of Last Bowel Movement 01/07/18 01/07/18 # Bowel Movements 1 Narrative: GENERAL: Well-developed, well-nourished patient in NAD. On supplemental o2. SKIN: Warm and dry. No rash. Right chest port in place, clean dry and intact. HEAD: Normocephalic. Atraumatic. EYES: Pupils equal and round. No scleral icterus. No injection or drainage. ENT: No nasal bleeding or discharge. Mucous membranes pink and moist. NECK: Supple. Trachea midline. CARDIOVASCULAR: Regular rate and rhythm. S1, S2 noted. 2 out of 6 murmur noted clear to auscultation. Breath sounds equal bilaterally. Barrel chest. GASTROINTESTINAL: Abdomen soft, non-tender. Normoactive bowel sounds x4. MUSCULOSKELETAL: No obvious deformities. Extremities without clubbing, cyanosis. Bilateral lower extremity edema 2+, significantly improved overnight. NEUROLOGICAL: Awake and alert. No obvious cranial nerve deficits. Motor grossly within normal limits. 5/5 muscle strength in bilateral upper and lower extremities. Normal speech. PSYCHIATRIC: Appropriate mood and affect; insight and judgment normal. Results - Labs CBC & Chem 7: 01/08/18 05:05 01/08/18 05:05 Laboratory Results - last 24 hr 01/07/18 01/07/18 01/07/18 12:55 12:55 12:55 CBC w Diff Slide review pending WBC 34.8 H RBC 2.88 L Hgb 8.7 L Hct 26.6 L MCV 92.2 MCH 30.1 MCHC 32.7 RDW 14.8 Plt Count 133 L MPV 7.0 Neut % (Auto) 10.0 L Lymph % (Auto) 87.2 H [place] % (Auto) 2.1 Eos % (Auto) 0.0 Baso % (Auto) 0.7 Neut # (Auto) 3.5 Lymph # (Auto) 30.4 H [place] # (Auto) 0.7 Eos # (Auto) 0.0 Baso # (Auto) 0.2 WBC Differential Manual diff final Diff Scan Seg Neuts % (Manual) 10 L Lymphocytes % (Manual) 89 H Monocytes % (Manual) 1 Abs Neuts (Manual) 3.5 Differential Comment . Smudge Cells Present H Platelet Estimate Low L Platelet Morphology Normal Basophilic Stippling Moderate H Ovalocytes 1+ H Rouleaux Present H PT INR APTT Sodium 125 L Potassium 4.4 Chloride 83 L Carbon Dioxide 34.0 H Anion Gap 8 BUN 16 Creatinine 0.46 L Estimated GFR Greater than 89 Random Glucose 111 H Lactic Acid Calcium 7.9 L Total Bilirubin 0.7 AST 16 ALT 12 Alkaline Phosphatase 93 Total Creatine Kinase 40 Troponin I Less than 0.02 L B-Natriuretic Peptide 176 H Total Protein 5.1 L Albumin 3.0 L Urine Color Urine Clarity Urine pH Ur Specific [place] Urine Protein Urine Glucose (UA) Urine Ketones Urine Occult Blood Urine Nitrate Urine Bilirubin Urine Urobilinogen Ur Leukocyte Esterase Ur Squamous Epith Cells Micro UA Comment Ur Microscopic Review Urine Culture Comments 01/07/18 01/07/18 01/07/18 13:35 13:35 19:20 CBC w Diff WBC RBC Hgb Hct MCV MCH MCHC RDW Plt Count MPV Neut % (Auto) Lymph % (Auto) [place] % (Auto) Eos % (Auto) Baso % (Auto) Neut # (Auto) Lymph # (Auto) [place] # (Auto) Eos # (Auto) Baso # (Auto) WBC Differential Diff Scan Seg Neuts % (Manual) Lymphocytes % (Manual) Monocytes % (Manual) Abs Neuts (Manual) Differential Comment Smudge Cells Platelet Estimate Platelet Morphology Basophilic Stippling Ovalocytes Rouleaux PT 27.5 H INR 2.7 APTT 45.5 H Sodium Potassium Chloride Carbon Dioxide Anion Gap BUN Creatinine Estimated GFR Random Glucose Lactic Acid 0.5 Calcium Total Bilirubin AST ALT Alkaline Phosphatase Total Creatine Kinase Troponin I B-Natriuretic Peptide Total Protein Albumin Urine Color Yellow Urine Clarity Clear Urine pH 7.0 Ur Specific [place] 1.010 Urine Protein Negative Urine Glucose (UA) Negative Urine Ketones Negative Urine Occult Blood Negative Urine Nitrate Negative Urine Bilirubin Negative Urine Urobilinogen 0.2 Ur Leukocyte Esterase Negative Ur Squamous Epith Cells 0-5 Micro UA Comment Culture not ind Ur Microscopic Review Microscopic reviewed Urine Culture Comments Culture not ind 01/08/18 01/08/18 01/08/18 05:05 05:05 05:05 CBC w Diff Slide review pending WBC 23.4 H RBC 2.76 L Hgb 8.3 L Hct 25.3 L MCV 92.0 MCH 30.2 MCHC 32.9 RDW 14.8 Plt Count 119 L MPV 7.4 Neut % (Auto) 11.4 L Lymph % (Auto) 83.6 H [place] % (Auto) 2.4 Eos % (Auto) 0.2 Baso % (Auto) 2.4 H Neut # (Auto) 2.7 Lymph # (Auto) 19.5 H [place] # (Auto) 0.6 Eos # (Auto) 0.0 Baso # (Auto) 0.6 H WBC Differential . Diff Scan Auto diff confirmed Seg Neuts % (Manual) Lymphocytes % (Manual) Monocytes % (Manual) Abs Neuts (Manual) Differential Comment . Smudge Cells Platelet Estimate Platelet Morphology Normal Basophilic Stippling Ovalocytes Rouleaux PT 29.8 H INR 3.0 APTT Sodium 126 L Potassium 3.9 Chloride 83 L Carbon Dioxide 37.8 H Anion Gap 5 BUN 16 Creatinine 0.44 L Estimated GFR Greater than 89 Random Glucose 109 H Lactic Acid Calcium 7.6 L Total Bilirubin AST ALT Alkaline Phosphatase Total Creatine Kinase Troponin I B-Natriuretic Peptide Total Protein Albumin Urine Color Urine Clarity Urine pH Ur Specific [place] Urine Protein Urine Glucose (UA) Urine Ketones Urine Occult Blood Urine Nitrate Urine Bilirubin Urine Urobilinogen Ur Leukocyte Esterase Ur Squamous Epith Cells Micro UA Comment Ur Microscopic Review Urine Culture Comments Microbiology 01/07/18 12:55 Blood - Other Aerobic Blood Culture - Preliminary No growth in 1 day 01/07/18 12:55 Blood - Other Anaerobic Blood Culture - Preliminary No growth in 1 day 01/07/18 13:35 Blood - Other Aerobic Blood Culture - Preliminary No growth in 1 day 01/07/18 13:35 Blood - Other Anaerobic Blood Culture - Preliminary No growth in 1 day 01/07/18 19:20 Urine - Random Urine Streptococcus pneumoniae Antigen (M - Final Presumptive negative for streptococcus pneumoniae antigen, suggesting no current or recent infection. Infection due to Streptococcus pneumoniae cannot be ruled out since the antigen present in the sample may be below the detection limit of the test. 01/07/18 19:20 Urine - Random Urine Legionella Antigen - Final Presumptive negative for Legionella pneumophila serogroup 1 antigen in urine, suggesting no recent or recurrent infection. Infection due to Legionella cannot be ruled out since other serogroups and species may cause disease, antigen may not be present in urine in early infection, and the level of antigen present in the urine may be below the detection limit of the test. - Imaging Impressions Chest CT 01/07/18 00:00 CONCLUSION: 1. Multiple widespread lytic lesions in bones consistent with metastatic disease. 2. Moderate size left effusion and small right pleural effusion. 3. Area of apparent rounded atelectasis in the right lower lobe. This was present on the remote CT. 4. Mild consolidation in the left lower lobe which is new. This could represent an early pneumonia. 5. Moderate cardiomegaly with no evidence of pulmonary edema. Chest X-Ray 01/07/18 11:53 CONCLUSION: Chronic interstitial changes within the parenchyma. [id number] in good position. Assessment and Plan - Assessment (1) CLL (chronic lymphocytic leukemia) Code(s): C91.90 - Lymphoid leukemia, unspecified not having achieved remission Status: Acute (2) Dyspnea on minimal exertion Code(s): R06.09 - Other forms of dyspnea Status: Acute (3) Hyponatremia Code(s): E87.1 - Hypo-osmolality and hyponatremia Status: Acute (4) Generalized muscle weakness Code(s): M62.81 - Muscle weakness (generalized) Status: Acute (5) Pneumonia Code(s): J18.9 - Pneumonia, unspecified organism Status: Acute (6) Pleural effusion Code(s): J90 - Pleural effusion, not elsewhere classified Status: Acute - Plan This is an 82-year-old male patient who presented to the ED with complaints of worsening shortness of breath especially with exertion. Acute on chronic respiratory failure, on home oxygen - 2L NC Moderate left pleural effusion Community-acquired pneumonia History of COPD -Presents with a 1-week complaint of worsening shortness of breath with exertion and worsening bilateral lower extremity swelling. BNP on presentation 176. -CXR reviewed showing interstitial changes. On exam, crackles are present. Appears to be fluid overloaded. -Consulted category development analyst, recommendations and input appreciated, does not believe it to be congestive heart failure but venous insufficiency. -Will dc diuretics. Lasix 20 mg IV given in ED. Has diuresed well with significant improvement. Will continue to monitor intake and output. Strict I& O. Fluid restriction 1.5L daily. -ECHO ordered and showing adequate EF. PAP 29. -Does not follow with a excellence leader, has been placed on home O2 this year. Unknown reason why per patient. -Consult placed to excellence leader, input and recommendations appreciated. Will need a left thoracentesis, although INR needs to be less than 1.5. Will hold Coumadin. -Check lower extremity US. -Sputum culture ordered. Legionella and streptococcus negative. -Was placed on Levaquin in ED. Continued. Added Azactam. Consult placed to ID. Input and recommendations pending. -Duonebs as needed for shortness of breath. -Blood cultures negative to date. -Chest CT ordered showing pleural effusions and possible left lower lobe pneumonia. History of CLL Chronic leukocytosis -Consulted Dr. Bains, whom he follows with outpatient. Appreciate input and recommendations. -Spoke to oncologist today regarding CT chest findings of questions metastic disease with multiple lytic lesions. Will obtain an abdominal CT as well. Follow. History of renal cell carcinoma status post nephrectomy -Stable kidney function. -Avoid nephrotoxins. -Monitor closely especially being on diuretics. Bilateral lower extremity DVT History of DVT History of antiphospholipid syndrome -Continue Coumadin. INR therapeutic. Hold for thoracentesis. -Lower extremity US showing bilateral lower extremity DVT despite Coumadin therapy with therapeutic INR. -Coumadin on hold. Oncology following, will hold anticoagulation for now and will monitor INR, if decreased to 2.0 may start heparin. Continue. DVT Prophylaxis: SCDs, Coumadin, on hold for procedure. Code Status: DNR/DNI. Discussed Condition With: Dr. Caban. Dr. Medina. Patient. Discharge Planning: Awaiting clinical improvement, ID consult and thoracentesis.
[2018-01-08] MEDS ORDERED: Diatrizoate Meglum/Diatrizoate Sod Liq 9 ML UDC PO ONE (13:00)
--- NOTE | 2018-01-08 13:35 | ECHRPT ---
Indication: Heart Failure CONCLUSIONS Normal left ventricular size. Wall thickness is measured at the upper limits of normal. The left ventricular systolic function is low normal with an estimated ejection fraction in the rang e of 50- 55%. The left atrial size is mildly dilated. [id number] mitral valve regurgitation. Mild mitral annular calcification. Aortic valve sclerosis is present. mean gradient = 25 mm hg c/w mild stenosis There is mild tricuspid valve regurgitation. The estimated pulmonary arterial pressure is 56 mmHg. A left sided pleural effusion is present. BP: / HR: Rhythm: MEASUREMENTS (Male / Female) Normal Values Technical Quality:Technically difficult study 2D ECHO LV Diastolic Diameter PLAX 5.3 cm 4.2 - 5.9 / 3.9 - 5.3 cm LV Systolic Diameter PLAX 3.7 cm IVS Diastolic Thickness 1.1 cm 0.6 - 1.0 / 0.6 - 0.9 cm LVPW Diastolic Thickness 1.0 cm 0.6 - 1.0 / 0.6 - 0.9 cm LV Relative Wall Thickness 0.4 LVOT Diameter 2.2 cm Aortic Root Diameter 3.2 cm LA Systolic Diameter LX 5.0 cm 3.0 - 4.0 / 2.7 - 3.8 cm DOPPLER AV Peak Velocity 325.0 cm/s AV Peak Gradient 42.3 mmHg AV Mean Gradient 25.0 mmHg AV Velocity Time Integral 77.3 cm LVOT Peak Velocity 108.0 cm/s LVOT Peak Gradient 4.7 mmHg LVOT Velocity Time Integral 27.6 cm AV Area Cont Eq vti 1.4 cm AV Area Cont Eq pk 1.3 cm Mitral E Point Velocity 125.0 cm/s Mitral A Point Velocity 118.0 cm/s Mitral E to A Ratio 1.1 LV E' Lateral Velocity 15.6 cm/s Mitral E to LV E' Lateral Ratio 8.0 LV E' Septal Velocity 8.0 cm/s Mitral E to LV E' Septal Ratio 15.6 TR Peak Velocity 339.0 cm/s TR Peak Gradient 46.0 mmHg Right Atrial Pressure 10.0 mmHg Pulmonary Artery Systolic Pressu 56.0 mmHg Right Ventricular Systolic Press 56.0 mmHg FINDINGS LEFT VENTRICLE Normal left ventricular size. Wall thickness is measured at the upper limits of normal. The left ventricular systolic function is low normal with an estimated ejection fraction in the rang e of 50- 55%. RIGHT VENTRICLE Normal right ventricular size and systolic function. LEFT ATRIUM The left atrial size is mildly dilated. RIGHT ATRIUM The right atrial size is normal. ATRIAL SEPTUM Normal atrial septal thickness without atrial level shunting by limited color doppler interrogation. AORTA The aortic root and proximal ascending aorta are normal in size on limited imaging. MITRAL VALVE [id number] mitral valve regurgitation. Mild mitral annular calcification. AORTIC VALVE Aortic valve sclerosis is present. TRICUSPID VALVE There is mild tricuspid valve regurgitation. The estimated pulmonary arterial pressure is 56 mmHg. PULMONARY VALVE No pulmonary valve regurgitation or stenosis. VESSELS The inferior vena cava was not well visualized. PERICARDIUM A left sided pleural effusion is present. Zohaib Hugo MD, FACC, FSCAI (Electronically Signed) Final Date:08 January 2018 13:34
--- NOTE | 2018-01-08 14:40 | MB ---
cc: Andrey Medina MD DATE: 01/08/2018 HISTORY OF PRESENT ILLNESS: The patient is an 82-year-old male with a past medical history of CLL, renal cancer, status post nephrectomy on 2 liters home oxygen continuously. The patient presented to [facility] with a history of progressive worsening shortness of breath associated with bilateral edema of lower extremities. He also complained of generalized weakness as well as a productive cough. He has a remote history of a DVT over 30 years ago and antiphospholipid syndrome for which he is on Coumadin. On arrival to the ER, the patient had significant leukocytosis with a WBC of 34.8, which trended down to 23.4 today. Also was hyponatremic with a sodium level of 125-126. A CT scan of the chest was obtained, which showed multiple widespread lytic lesions in the bone consistent with metastatic disease, moderate size left pleural effusion and small right pleural effusion, rounded atelectasis in right lower lobe, and mild consolidation in left lower lobe. The patient denies any nausea, vomiting or abdominal pain. He denies any wheezing or constitutional symptoms. PAST MEDICAL HISTORY: Significant for CLL, renal cancer, questionable COPD, bilateral cataracts. PAST SURGICAL HISTORY: Previous nephrectomy, previous right knee surgery, previous Agustin-en-Y gastric bypass. FAMILY HISTORY: Noncontributory to present illness. ALLERGIES: CLINDAMYCIN, PENICILLIN. SOCIAL HISTORY: Remote history of tobacco use. Nondrinker. MEDICATIONS AT HOME: 1. Coumadin. 2. Losartan/hydrochlorothiazide. REVIEW OF SYSTEMS: As per HPI. Rest of the systems is unremarkable. PHYSICAL EXAMINATION: GENERAL: An 82-year-old male, sitting in chair, in no acute distress. VITAL SIGNS: Temperature 97.0, pulse 66, respiratory rate of 18, blood pressure 122/58, sats 98% on 2 liter oxygen. HEENT: Atraumatic, normocephalic. Pupils are equal, round, reactive to light and accommodation. Extraocular muscles intact. Conjunctivae pink. Nonicteric sclerae. Oral mucosa within normal. NECK: Supple. No JVD, adenopathy or thyromegaly. Trachea in the midline. CARDIOVASCULAR: Regular rate and rhythm. Normal S1, S2. No murmurs, rubs or gallops noted. PULMONARY: Bilateral equal air entry. Diminished breath sounds at the bases. ABDOMEN: Soft, nontender. No distention. Positive bowel sounds. EXTREMITIES: No cyanosis, clubbing, 2-3+ edema of bilateral lower extremities. NEUROLOGIC: No focal sensory deficit. LABORATORY DATA: Sodium 126, potassium 3.9, chloride 83, CO2 of 37, BUN 16, creatinine 0.44, glucose 109. RADIOGRAPHIC STUDIES: CT of the chest showed moderate left pleural effusion, lytic lesions in the bone with metastatic disease, rounded atelectasis in right lower lobe, mild consolidation in left lower lobe. IMPRESSION: 1. Respiratory insufficiency. 2. Moderate left pleural effusion. 3. Left lower lobe consolidation, which could represent early pneumonia. 4. Atelectasis in the right lower lobe. 5. Leukocytosis. 6. Hyponatremia. 7. Anemia. 8. History of chronic lymphocytic leukemia. 9. History of renal cancer with previous nephrectomy. 10. History of deep venous thrombosis and antiphospholipid syndrome. 11. Coagulopathy secondary to Coumadin. RECOMMENDATIONS: 1. We will continue with oxygen and maintain sats above 92%. 2. Place on bronchodilators in the form of DuoNeb every 4 hours plus every 2 hours p.r.n. for shortness of breath. 3. We will give Diamox 250 mg IV x 1. 4. We will hold Coumadin and once INR is less than 1.5, we will proceed with ultrasound-guided thoracentesis. We will send pleural fluid for analysis and culture. 5. Place on aztreonam and monitor for signs of infection, which include fever and WBC. Blood cultures from 01/07/2018 showed no growth to date. Strep pneumonia and legionella urinary antigen is negative. I will consult the infectious disease service. The patient is scheduled for CT abdomen and pelvis without IV contrast. 6. We will obtain a Doppler ultrasound of the lower extremity to rule out deep venous thrombosis. 7. A 2-D echo to evaluate LV function. A 2-D echo from today showed an EF of 50-55% and moderate pulmonary hypertension with a PA pressure of 56 mmHg. The patient was seen by Dr. Bailey from the cardiology service. 8. Monitor CBC and coagulation studies. INR is 3.0 today. 9. Continue present treatment. 10. Further recommendations will be based on hospital course. Thank you for this consult and allowing us to participate in this patient's care. MD Divya Michelle , 02:07 PM , 02:20 PM
--- NOTE | 2018-01-08 15:12 | ECG ---
Date Performed: 01/07/2018 Time Performed: 12:09:52 PTAGE: 82 years EKG: Patient appears to have a sinus Bradycardia, with a marked Prolonged first degree AV block. MODERATE INTRAVENTRICULAR CONDUCTION DELAY ABNORMAL QRS-T ANGLE Clinical correlation is recommended ABNORMAL ECG PREVIOUS TRACING : 12/08/2013 16.23 DOCTOR: Mikel Jauregui Interpretating Date/Time 01/08/2018 15:11:58
--- NOTE | 2018-01-08 15:47 | US ---
EXAM DATE: 01/08/2018 3:39 PM EST AGE/SEX: 82 years / Male INDICATIONS: Leg swelling. CLINICAL DATA: This is the patient's initial encounter. Patient reports that signs and symptoms have been present for 1 week and indicates a pain score of 0/10. MEDICAL/SURGICAL HISTORY: . Hyponatremia. Chronic lymphocytic leukemia. Chemotherapy. Kidney ca ncer. Cataracts. Hyponatremia. Chronic respiratory failure. Left lower extremity DVT. . Agustin-en-Y ga stric bypass with reversal. Right knee surgery. Left nephrectomy. COMPARISON: No prior exams available for comparison. TECHNIQUE: Venous ultrasound of both lower extremities was performed from the inguinal ligament to t he proximal calf. Real-time, color Doppler and spectral tracing, compression and augmentation techni ques were used. FINDINGS: Right Leg: Extensive DVT extending from the proximal superficial femoral vein down into the calf vei ns. Elongated complex collection in the medial popliteal space consistent with Parker's cyst. In the p roximal right thigh region, there is some apparent arterialization of venous flow which may be indica tive of AV shunting. Left Leg: Extensive DVT extending from the proximal superficial femoral vein down into the calf vein s. Other: None. CONCLUSION: 1. Extensive bilateral lower extremity DVT 2. Apparent arterialization of venous waveforms in the proximal right thigh suspicious for arteriove nous communication. Further evaluation with CTA runoff study recommended Electronically signed by: Ld Lawson MD 01/08/2018 3:45 PM EST
[2018-01-08] MEDS ORDERED: Heparin Drip 25,000 UNIT/250 ML BAG IV.CONT PRN (16:11)
--- NOTE | 2018-01-08 17:05 | CT ---
EXAM DATE: 01/08/2018 4:54 PM EST AGE/SEX: 82 years / Male INDICATIONS: Evaluate for metastases. CLINICAL DATA: This is the patient's initial encounter. Patient reports that signs and symptoms have been present for 1 day and indicates a pain score of 0/10. MEDICAL/SURGICAL HISTORY: Renal cell carcinoma. Leukemia. Gastric bypass. Nephrectomy, left. RADIATION DOSE: 18.43 CTDI (mGy) COMPARISON: No prior exams available for comparison. TECHNIQUE: Multiple contiguous axial images were obtained through the abdomen. Images were obtained using multiple row detector helical technique. Using automated exposure control and adjustment of the mA and/or kV according to patient size, radiation dose was kept as low as reasonably achievable to o btain optimal diagnostic quality images. DICOM format image data is available electronically for rev iew and comparison. FINDINGS: Lower Lungs: There is a moderate left pleural effusion and mild right pleural effusion. There is acco mpanying atelectasis or consolidation at the lung bases being worse on the right. Liver: There are multiple calcified granulomas seen throughout the liver. There is a oval smooth 1.6 cm hypodensity seen at the left lobe liver likely related to a cyst or hemangioma although this is no nspecific on this noncontrast CT examination. Multiple calcified gallstones are seen within the gallb ladder. Spleen: The spleen is massively enlarged measuring 22.3 cm in length. Calcified granulomas are seen throughout the spleen. Pancreas: The patient is status post left nephrectomy. The pancreas appears to be displaced into the left renal fossa. There are multiple low-density masses seen at what appears to be pancreatic body m easuring up to 2.7 cm. It is difficult to fully characterize in this noncontrast CT examination. Kidneys: The patient is status post left nephrectomy. The right kidney is unremarkable for a noncont rast CT examination. Patient does have a hernia at the posterior left lateral abdomen presumably from the prior nephrectomy. Adrenal Glands: Unremarkable. Aorta: The aorta and proximal iliac vessels are grossly unremarkable without aneurysmal dilation. A therosclerotic calcifications are present. Bowel/Mesentery: The bowel loops are grossly unremarkable. The cecum and sigmoid colon have a normal configuration. There is a moderate amount stool in the colon. There is mild ascites seen throughout the peritoneal cavity. Abdominal Wall: The anterior abdominal wall appears intact. Some increased density in the midline at the anterior abdominal wall which may relate to postsurgical change. The patient does have a hernia at the posterior left lateral lower abdomen presumably from prior left nephrectomy surgical defect. Retroperitoneum: There appears to be soft tissue density in the retroperitoneum concerning for possi ble adenopathy. Bladder: Contours are smooth. Reproductive Organs: The prostate is enlarged. Inguinal: There is fluid extending to the right inguinal canal from the ascites. Bony Structures: Numerous lytic lesions are seen throughout the visualized bony structures in the sp ine, pelvis and proximal femurs. CONCLUSION: 1. Widespread bony lesions consistent with widespread metastatic disease. 2. Massive splenomegaly. 3. Questionable low-density masses in the pancreas or retroperitoneum. These are difficult to fully define on the noncontrast CT examination. Also possible retroperitoneal adenopathy. 4. Status post left nephrectomy. There is a hernia the surgical defect at the posterior left lateral abdomen. 5. Mild ascites. 6. Bilateral pleural effusions being greater on the left. Electronically signed by: Ld Leyva MD 01/08/2018 5:04 PM EST
--- NOTE | 2018-01-08 17:28 | P.PNONC ---
Subjective Interval history: Patient seen and examined, vital signs, labs, medications studies reviewed. CT scan thorax, CT scan abdomen and pelvis and ultrasound Doppler study of the bilateral lower extremities reviewed. Subjectively; patient reports feeling generally weak, he reports feeling short of breath, he reports abdominal pain and pelvic pain. He tells me he has a poor appetite, and has been unwell for quite some time. He also reports having had swelling of his lower extremities and of his abdomen. He confides in me that he knows he is "dying". Objective Vital Signs/Intake & Output: Vital Signs 01/07/18 20:00 01/07/18 20:15 01/07/18 20:43 Temperature 96.5 F L Pulse Rate 69 79 Respiratory Rate 18 Blood Pressure 110/55 L Pulse Oximetry 100 94 L 01/08/18 00:00 01/08/18 00:04 01/08/18 04:00 Temperature 97.1 F L 96.0 F L Pulse Rate 70 61 55 L Respiratory Rate 20 20 Blood Pressure 129/63 125/59 L Pulse Oximetry 95 97 01/08/18 04:05 01/08/18 07:49 01/08/18 08:00 Temperature 96.9 F L Pulse Rate 54 L 62 71 Respiratory Rate 18 Blood Pressure 133/63 Pulse Oximetry 99 01/08/18 08:16 01/08/18 11:20 01/08/18 12:00 Temperature 97.0 F L Pulse Rate 66 76 Respiratory Rate 18 Blood Pressure 122/58 L Pulse Oximetry 98 98 01/08/18 16:13 Temperature Pulse Rate 72 Respiratory Rate 20 Blood Pressure Pulse Oximetry Intake & Output 01/07/18 01/08/18 01/08/18 18:59 06:59 18:59 Intake Total 250 / 250 120 / 120 100 / 100 Output Total 500 / 500 1100 / 1100 Balance -250 / -250 -980 / -980 100 / 100 Weight 94 kg 94.2 kg Intake: IV 250 / 250 100 / 100 Azactam Inj 1,000 MG In NS Inj 100 / 100 100 ML @ 200 mls/hr IV.SIG Q8H [facility] Rx#:[id number] Levaquin 250 mg Premix Inj 250 250 / 250 mg In 50 ml @ 50 mls/hr IV.SIG ONCE ONE Rx#:[id number] Oral 120 / 120 Output: Urine 500 / 500 1100 / 1100 Other: # Voids 1 Date of Last Bowel Movement 01/07/18 01/07/18 01/07/18 # Bowel Movements 1 Result Diagrams: 01/08/18 05:05 01/08/18 05:05 Laboratory Results: Laboratory Results - last 24 hr 01/07/18 01/08/18 01/08/18 19:20 05:05 05:05 CBC w Diff Slide review pending WBC 23.4 H RBC 2.76 L Hgb 8.3 L Hct 25.3 L MCV 92.0 MCH 30.2 MCHC 32.9 RDW 14.8 Plt Count 119 L MPV 7.4 Neut % (Auto) 11.4 L Lymph % (Auto) 83.6 H Mcdonald % (Auto) 2.4 Eos % (Auto) 0.2 Baso % (Auto) 2.4 H Neut # (Auto) 2.7 Lymph # (Auto) 19.5 H Mcdonald # (Auto) 0.6 Eos # (Auto) 0.0 Baso # (Auto) 0.6 H WBC Differential . Diff Scan Auto diff confirmed Differential Comment . Platelet Morphology Normal PT INR Sodium 126 L Potassium 3.9 Chloride 83 L Carbon Dioxide 37.8 H Anion Gap 5 BUN 16 Creatinine 0.44 L Estimated GFR Greater than 89 Random Glucose 109 H Calcium 7.6 L Urine Color Yellow Urine Clarity Clear Urine pH 7.0 Ur Specific Wisner 1.010 Urine Protein Negative Urine Glucose (UA) Negative Urine Ketones Negative Urine Occult Blood Negative Urine Nitrate Negative Urine Bilirubin Negative Urine Urobilinogen 0.2 Ur Leukocyte Esterase Negative Ur Squamous Epith Cells 0-5 Micro UA Comment Culture not ind Ur Microscopic Review Microscopic reviewed Urine Culture Comments Culture not ind 01/08/18 05:05 CBC w Diff WBC RBC Hgb Hct MCV MCH MCHC RDW Plt Count MPV Neut % (Auto) Lymph % (Auto) Mcdonald % (Auto) Eos % (Auto) Baso % (Auto) Neut # (Auto) Lymph # (Auto) Mcdonald # (Auto) Eos # (Auto) Baso # (Auto) WBC Differential Diff Scan Differential Comment Platelet Morphology PT 29.8 H INR 3.0 Sodium Potassium Chloride Carbon Dioxide Anion Gap BUN Creatinine Estimated GFR Random Glucose Calcium Urine Color Urine Clarity Urine pH Ur Specific Wisner Urine Protein Urine Glucose (UA) Urine Ketones Urine Occult Blood Urine Nitrate Urine Bilirubin Urine Urobilinogen Ur Leukocyte Esterase Ur Squamous Epith Cells Micro UA Comment Ur Microscopic Review Urine Culture Comments Culture Results: Microbiology 01/07/18 12:55 Aerobic Blood Culture - Preliminary Blood - Other No growth in 1 day Anaerobic Blood Culture - Preliminary No growth in 1 day 01/07/18 13:35 Aerobic Blood Culture - Preliminary Blood - Other No growth in 1 day Anaerobic Blood Culture - Preliminary No growth in 1 day 01/07/18 19:20 Streptococcus pneumoniae Antigen (M - Final Urine - Random Urine Presumptive negative for streptococcus pneumoniae antigen, suggesting no current or recent infection. Infection due to Streptococcus pneumoniae cannot be ruled out since the antigen present in the sample may be below the detection limit of the test. 01/07/18 19:20 Legionella Antigen - Final Urine - Random Urine Presumptive negative for Legionella pneumophila serogroup 1 antigen in urine, suggesting no recent or recurrent infection. Infection due to Legionella cannot be ruled out since other serogroups and species may cause disease, antigen may not be present in urine in early infection, and the level of antigen present in the urine may be below the detection limit of the test. Imaging Studies: Impressions Chest CT 01/07/18 00:00 CONCLUSION: 1. Multiple widespread lytic lesions in bones consistent with metastatic disease. 2. Moderate size left effusion and small right pleural effusion. 3. Area of apparent rounded atelectasis in the right lower lobe. This was present on the remote CT. 4. Mild consolidation in the left lower lobe which is new. This could represent an early pneumonia. 5. Moderate cardiomegaly with no evidence of pulmonary edema. Abdomen/Pelvis CT 01/08/18 00:00 CONCLUSION: 1. Widespread bony lesions consistent with widespread metastatic disease. 2. Massive splenomegaly. 3. Questionable low-density masses in the pancreas or retroperitoneum. These are difficult to fully define on the noncontrast CT examination. Also possible retroperitoneal adenopathy. 4. Status post left nephrectomy. There is a hernia the surgical defect at the posterior left lateral abdomen. 5. Mild ascites. 6. Bilateral pleural effusions being greater on the left. Venous Doppler Study 01/08/18 00:00 CONCLUSION: 1. Extensive bilateral lower extremity DVT 2. Apparent arterialization of venous waveforms in the proximal right thigh suspicious for arteriovenous communication. Further evaluation with CTA runoff study recommended Medications: Active Medications Generic Name Dose Route Start Last Admin Trade Name Freq PRN Reason Stop Dose Admin Albuterol 1 ampul 01/08/18 16:00 01/08/18 16:09 Duoneb Neb (Michel) NEB 1 ampul Q4HR NEB MICHEL Administration Aztreonam 1,000 mg/ Sodium 100 mls @ 200 mls/hr 01/08/18 15:00 01/08/18 16:17 Chloride IV.SIG Infused Q8H MICHEL Infusion Sodium Chloride 2 ml 01/07/18 21:00 01/08/18 12:29 Ns Flush IV.FLUSH 2 ml BID MICHEL Administration Tamsulosin HCl 0.4 mg 01/08/18 09:00 01/08/18 09:02 Flomax PO 0.4 mg DAILY MICHEL Administration Warfarin Sodium 7.5 mg 01/07/18 19:45 01/07/18 20:42 Coumadin PO 7.5 mg EVERY OTHER DAY@1600 MICHEL Administration Objective Remarks: GENERAL: Elderly and frail male, lying in bed, appears to be no acute distress, he has a pleasant disposition, he at times seems to struggle to finish sentences due to shortness of breath. SKIN: Warm and dry. HEAD: Normocephalic. EYES: No scleral icterus. No injection or drainage. NECK: Supple, trachea midline. No JVD or lymphadenopathy. LYMPHATIC: No adenopathy. CARDIOVASCULAR: Tachycardic, S1-S2 systolic murmur noted. RESPIRATORY: Decreased bibasilar breath sounds, poor inspiratory effort, prolonged expiratory phase. GASTROINTESTINAL: Protuberant abdomen, tympanic to percussion, postsurgical changes noted, splenomegaly noted. EXTREMITIES: Bilateral lower extremity edema noted. MUSCULOSKELETAL: Generally decreased muscle mass and tone. NEUROLOGICAL: No obvious focal deficit. Awake, alert, and oriented x3. PSYCHIATRIC: Appropriate mood and affect; insight and judgment normal. Assessment/Plan - Plan Mr. Farfan is an 82-year-old male with multiple medical comorbid conditions, he reports having had a history of renal cell carcinoma involving the left kidney diagnosed some 20 years ago, he reports having had a previous history of bilateral lower extremity venous thromboses also 15-20 years ago, for this reason he reports having been on custodial therapeutic anticoagulation with warfarin. He has a history of congestive heart failure, and chronic lymphocytic leukemia. The patient is at this facility with various complaints but mostly failure to thrive, lower extremity edema and difficulty breathing. Diagnostic workup thus far has revealed a multitude of abnormalities including bilateral lower extremity deep venous thromboses; the chronicity of which is not known. He is found to have pleural effusions, is found to be in congestive heart failure, and CT imaging of the abdomen reveals massive splenomegaly. Additional findings indicate extensive bony destructive lesions with lytic and sclerotic lesions involving the entirety of his skeleton. His ECOG performance status is 4. I long discussion with the patient today, he tells me he understands how frail he has he understands he has multiple medical comorbid conditions and tells me he is not motivated to pursue aggressive diagnostic workup or aggressive therapeutic interventions. He tells me he understands he does not have "very long to live "and has asked for hospice. He tells me his brother is on hospice and is benefiting from their services and he would like to pursue the same. Recommendations: 1. Bilateral lower extremity venous thromboses: If therapeutic intervention is desired by the patient it would be reasonable to transition him to an oral factor X a inhibitor such as Eliquis or Xarelto. In the inpatient setting, heparin infusion may be a reasonable option as well. 2. Chronic lymphocytic leukemia: He has massive splenomegaly likely related to CLL, he has anemia and a moderate degree of lymphocytosis. It is not clear whether therapeutic intervention is required at this time. I do not believe this man is a good candidate for aggressive therapeutic interventions. 3. Numerous sclerotic/lytic lesions involving his spine, pelvis and his bony skeleton in general: I requested serum protein lateral pheresis and a PSA level. The patient tells me he thinks he may have had a previous history of prostate cancer but is not sure. Again if this gentleman has an aggressive plasma cell disorder such as multiple myeloma it would be reasonable to transition directly to hospice because he will not tolerate aggressive therapeutic interventions. If he is found to have a elevated PSA that would point towards metastatic prostate carcinoma, in this case he may be a candidate for initiation of oral testosterone blockade with Casodex which has relatively few systemic adverse effects. 4. The patient has requested hospice evaluation. This was placed. 5. I did talk to the patient about CODE STATUS, he does not wish advanced life support or cardiopulmonary resuscitation. I have therefore changed him from a full code to a DNR/DNI.
[2018-01-09 07:37] LABS: INR 2.8 Ratio; Prothrombin Time 28.1 sec (9.8-11.6)
--- NOTE | 2018-01-09 10:44 | P.PNIM ---
Subjective Interval history: Follow up shortness of breath, hypoxia, CLL and bone metastasis. Patient seen and examined, lying in bed at bedside. Spoke to patient and at length regarding hematology visit last evening, suspecting bone metastatic cancer. Prostate workup has been initiated as well as myeloma. Patient is stating that he is not afraid to . He knows that his prognosis is poor and he is requesting hospice visitation. We also discussed at length regarding thoracentesis and therapeutic versus diagnostic purposes of thoracentesis. Coumadin has been held and INR 2.8 today. We will continue to hold until INR is less than 2 and allow patient to determine if he still wants to have the thoracentesis for therapeutic reasons. Patient is leaning more towards hospice and no significant procedures to be done. Patient is tolerating p.o. intake well without any nausea or vomiting. He just states he feels weak. Continued on 2 L nasal cannula. Physical Exam Vital signs: Vital Signs 01/08/18 11:20 01/08/18 12:00 01/08/18 16:00 Temperature 97.0 F L 96.8 F L Pulse Rate 66 76 60 Respiratory Rate 18 17 Blood Pressure 122/58 L 137/63 Pulse Oximetry 98 99 01/08/18 16:13 01/08/18 19:00 01/08/18 19:30 Temperature 96 F L Pulse Rate 72 71 69 Respiratory Rate 20 18 20 Blood Pressure 112/56 L Pulse Oximetry 99 01/08/18 20:30 01/09/18 00:00 01/09/18 00:35 Temperature 96.3 F L Pulse Rate 69 81 73 Respiratory Rate 18 Blood Pressure 131/62 Pulse Oximetry 97 01/09/18 02:20 01/09/18 04:00 01/09/18 05:22 Temperature 97.2 F L Pulse Rate 75 83 74 Respiratory Rate 20 18 20 Blood Pressure 110/53 L Pulse Oximetry 98 01/09/18 05:42 01/09/18 05:44 01/09/18 08:00 Temperature 96.6 F L Pulse Rate 74 74 Respiratory Rate 18 20 Blood Pressure 125/63 Pulse Oximetry 100 01/09/18 08:21 Temperature Pulse Rate 74 Respiratory Rate 20 Blood Pressure Pulse Oximetry Intake & Output 01/08/18 01/09/18 01/09/18 18:59 06:59 18:59 Intake Total 100 / 100 440 / 440 Output Total 1450 / 1450 Balance 100 / 100 -1010 / -1010 Weight 94.4 kg Intake: IV 100 / 100 100 / 100 Azactam Inj 1,000 MG In NS Inj 100 / 100 100 / 100 100 ML @ 200 mls/hr IV.SIG Q8H ROSELYN Rx#:[id number] Oral 340 / 340 Output: Urine 1450 / 1450 Other: # Voids 4 Date of Last Bowel Movement 01/07/18 01/08/18 01/08/18 Narrative: GENERAL: Well-developed, well-nourished patient in NAD. On supplemental o2. Generalized pain. SKIN: Warm and dry. No rash. Right chest port in place, clean dry and intact. Sacrum red, no open sore. Tender to touch. HEAD: Normocephalic. Atraumatic. EYES: Pupils equal and round. No scleral icterus. No injection or drainage. ENT: No nasal bleeding or discharge. Mucous membranes pink and moist. NECK: Supple. Trachea midline. CARDIOVASCULAR: Regular rate and rhythm. S1, S2 noted. RESPIRATORY: Crackles in posterior lower base. Breath sounds equal bilaterally. Barrel chest. GASTROINTESTINAL: Abdomen soft, non-tender. Normoactive bowel sounds x4. MUSCULOSKELETAL: No obvious deformities. Extremities without clubbing, cyanosis. Bilateral lower extremity edema 3+. NEUROLOGICAL: Awake and alert. No obvious cranial nerve deficits. Motor grossly within normal limits. 4/5 muscle strength in bilateral upper and lower extremities. Normal speech. PSYCHIATRIC: Appropriate mood and affect; insight and judgment normal. Results - Labs CBC & Chem 7: 01/08/18 05:05 01/08/18 05:05 Laboratory Results - last 24 hr 01/09/18 06:30 PT 28.1 H INR 2.8 Microbiology 01/07/18 12:55 Blood - Other Aerobic Blood Culture - Preliminary No growth in 1 day 01/07/18 12:55 Blood - Other Anaerobic Blood Culture - Preliminary No growth in 1 day 01/07/18 13:35 Blood - Other Aerobic Blood Culture - Preliminary No growth in 1 day 01/07/18 13:35 Blood - Other Anaerobic Blood Culture - Preliminary No growth in 1 day 01/07/18 19:20 Urine - Random Urine Streptococcus pneumoniae Antigen (M - Final Presumptive negative for streptococcus pneumoniae antigen, suggesting no current or recent infection. Infection due to Streptococcus pneumoniae cannot be ruled out since the antigen present in the sample may be below the detection limit of the test. 01/07/18 19:20 Urine - Random Urine Legionella Antigen - Final Presumptive negative for Legionella pneumophila serogroup 1 antigen in urine, suggesting no recent or recurrent infection. Infection due to Legionella cannot be ruled out since other serogroups and species may cause disease, antigen may not be present in urine in early infection, and the level of antigen present in the urine may be below the detection limit of the test. - Imaging Impressions Abdomen/Pelvis CT 01/08/18 00:00 CONCLUSION: 1. Widespread bony lesions consistent with widespread metastatic disease. 2. Massive splenomegaly. 3. Questionable low-density masses in the pancreas or retroperitoneum. These are difficult to fully define on the noncontrast CT examination. Also possible retroperitoneal adenopathy. 4. Status post left nephrectomy. There is a hernia the surgical defect at the posterior left lateral abdomen. 5. Mild ascites. 6. Bilateral pleural effusions being greater on the left. Venous Doppler Study 01/08/18 00:00 CONCLUSION: 1. Extensive bilateral lower extremity DVT 2. Apparent arterialization of venous waveforms in the proximal right thigh suspicious for arteriovenous communication. Further evaluation with CTA runoff study recommended Assessment and Plan - Assessment (1) CLL (chronic lymphocytic leukemia) Code(s): C91.90 - Lymphoid leukemia, unspecified not having achieved remission Status: Acute (2) Dyspnea on minimal exertion Code(s): R06.09 - Other forms of dyspnea Status: Acute (3) Hyponatremia Code(s): E87.1 - Hypo-osmolality and hyponatremia Status: Acute (4) Generalized muscle weakness Code(s): M62.81 - Muscle weakness (generalized) Status: Acute - Plan This is an 82-year-old male patient who presented to the ED with complaints of worsening shortness of breath especially with exertion. Acute on chronic respiratory failure, on home oxygen - 2L NC Moderate left pleural effusion Community-acquired pneumonia History of COPD -Presents with a 1-week complaint of worsening shortness of breath with exertion and worsening bilateral lower extremity swelling. BNP on presentation 176. -CXR reviewed showing interstitial changes. On exam, crackles are present. Appears to be fluid overloaded. -Consulted lmsw, recommendations and input appreciated, does not believe it to be congestive heart failure but venous insufficiency. -Will dc diuretics. Lasix 20 mg IV given in ED. Has diuresed well with significant improvement. Will continue to monitor intake and output. Strict I& O. Fluid restriction 1.5L daily. -ECHO ordered and showing adequate EF. PAP 29. -Does not follow with a housekeeping and laundry team leader, has been placed on home O2 this year. Unknown reason why per patient. -Consult placed to housekeeping and laundry team leader, input and recommendations appreciated. Will need a left thoracentesis if patient wishes, although INR needs to be less than 1.5. Will hold Coumadin. INR 1.8 today. -Lower extremity ultrasound significant for bilateral DVT. -Sputum culture ordered. Legionella and streptococcus negative. -Was placed on Levaquin in ED. Continued. Added Azactam. Consult to ID has been canceled, patient is wanting hospice measures. -Duonebs as needed for shortness of breath. -Blood cultures negative to date. -Chest CT ordered showing pleural effusions and possible left lower lobe pneumonia. History of CLL Chronic leukocytosis -Consulted Dr. Bains, whom he follows with outpatient. Appreciate input and recommendations. -Spoke to oncologist today regarding CT chest findings of questions metastatic disease with multiple lytic lesions. -Abdominal CT showing metastatic disease. Dr. Caban, oncologist is ordered prostate markers as well as initiating myeloma workup. -Hospice is likely the route patient wants to go. Will arrange meeting with and patient. History of renal cell carcinoma status post nephrectomy -Stable kidney function. -Avoid nephrotoxins. -Monitor closely especially being on diuretics. Bilateral lower extremity DVT History of DVT History of antiphospholipid syndrome -Holding Coumadin for possible thoracentesis if patient wishes. For therapeutic reasons. -Lower extremity US showing bilateral lower extremity DVT despite Coumadin therapy with therapeutic INR. -Coumadin on hold. Oncology following, will hold anticoagulation for now and will monitor INR. DVT Prophylaxis: SCDs, Coumadin Discharge Planning: Hospice consulted. Awaiting meeting with and patient today..
[2018-01-09 15:14] LABS: Baso # (Auto) 0.7 th/mm3 (0.0-0.2); Eos % (Auto) 0.1 % (0.0-4.0); Hematocrit 23.5 % (39.0-51.0); Hemoglobin 7.6 gm/dL (13.0-17.0); Lymph # (Auto) 12.7 th/mm3 (1.0-4.8); Lymph % (Auto) 73.9 % (9.0-44.0); Mean Corpuscular HGB Conc 32.3 % (32.0-36.0); Mean Corpuscular Hemoglobin 30.4 pg (27.0-34.0); Mean Corpuscular Volume 94.1 fL (80.0-100.0); Mean Platelet Volume 7.6 fL (7.0-11.0); Mono # (Auto) 0.6 th/mm3 (0.0-0.9); Mono % (Auto) 3.5 % (0.0-8.0); Neut # (Auto) 3.2 th/mm3 (1.8-7.7); Neut % (Auto) 18.5 % (16.0-70.0); Platelet Count 102 th/mm3 (150-450); White Blood Count 17.2 th/mm3 (4.0-11.0)
--- NOTE | 2018-01-09 15:29 | P.PNPL ---
Subjective Interval history: Patient is lying in bed in NAD. Afebrile. Physical Exam Vital signs: Vital Signs 01/08/18 16:00 01/08/18 16:13 01/08/18 19:00 Temperature 96.8 F L 96 F L Pulse Rate 60 72 71 Respiratory Rate 17 20 18 Blood Pressure 137/63 112/56 L Pulse Oximetry 99 01/08/18 19:30 01/08/18 20:30 01/09/18 00:00 Temperature 96.3 F L Pulse Rate 69 69 81 Respiratory Rate 20 18 Blood Pressure 131/62 Pulse Oximetry 99 97 01/09/18 00:35 01/09/18 02:20 01/09/18 04:00 Temperature 97.2 F L Pulse Rate 73 75 83 Respiratory Rate 20 18 Blood Pressure 110/53 L Pulse Oximetry 98 01/09/18 05:22 01/09/18 05:42 01/09/18 05:44 Temperature Pulse Rate 74 74 Respiratory Rate 20 18 Blood Pressure Pulse Oximetry 01/09/18 08:00 01/09/18 08:21 01/09/18 11:51 Temperature 96.6 F L Pulse Rate 74 74 72 Respiratory Rate 20 20 20 Blood Pressure 125/63 Pulse Oximetry 100 01/09/18 12:00 Temperature 99.1 F Pulse Rate 63 Respiratory Rate 17 Blood Pressure 125/59 L Pulse Oximetry 100 Intake & Output 01/08/18 01/09/18 01/09/18 18:59 06:59 18:59 Intake Total 100 / 100 440 / 440 100 / 100 Output Total 1450 / 1450 Balance 100 / 100 -1010 / -1010 100 / 100 Weight 94.4 kg Intake: IV 100 / 100 100 / 100 100 / 100 Azactam Inj 1,000 MG In NS Inj 100 / 100 100 / 100 100 / 100 100 ML @ 200 mls/hr IV.SIG Q8H ROSELYN Rx#:[id number] Oral 340 / 340 Output: Urine 1450 / 1450 Other: # Voids 4 Date of Last Bowel Movement 01/07/18 01/08/18 01/08/18 - Constitutional no acute distress - Routine HEENT Exam Head: Present: normocephalic, atraumatic Eye: Present: EOMI, PERRL, normal accommodation ENT: Present: mucous membranes moist - Routine Neck Exam Present: supple, full ROM, trachea midline - Routine Respiratory Exam Present: CTA bilaterally - Routine Cardiovascular Exam Present: RRR, S1, S2 - Routine Abdominal Exam Present: soft, normoactive bowel sounds - Routine Neurological Exam Present: alert, oriented X3, CN II-XII intact Assessment and Plan - Plan 1. Respiratory insufficiency. 2. Moderate left pleural effusion. 3. Left lower lobe consolidation, which could represent early pneumonia. 4. Atelectasis in the right lower lobe. 5. Leukocytosis. 6. DVT 7. Anemia. 8. History CLL 10. History antiphospholipid syndrome. 11. Coagulopathy secondary to Coumadin. Plan Continue with oxygen and maintain sats > 92%. Bronchodilators Will hold off on thoracentesis. Continue aztreonam and monitor for signs of infection(fever and WBC). BC: 01/07/2018 showed no growth to date. Strep pneumonia and legionella urinary antigen negative. Doppler US LE showed extensive b/l DVT Echo: EF of 50-55% and moderate pulmonary hypertension with a PA pressure of 56 mmHg. Cards is following- Dr. Bailey Monitor CBC, INR: 2.[address] abdomen/pelvis: Widespread bony lesions consistent with widespread metastatic disease. Massive splenomegaly. Status post left nephrectomy. Spoke to patient's and she states she would like to focus on comfort measures Patient was made no code DNR and hospice service was consulted. Will sign sign off please call with any questions.
[2018-01-09 15:43] LABS: Lymphocytes 64 % (9-44); Monocytes 4 % (0-8); Platelet Morphology Normal (Normal)
[2018-01-09 15:47] LABS: Anion Gap 5 meq/L (5-15); Blood Urea Nitrogen 15 mg/dL (7-18); Calcium 7.6 mg/dL (8.5-10.1); Carbon Dioxide 36.1 meq/L (21.0-32.0); Chloride 82 meq/L (98-107); Glomerular Filtration Rate Greater Than 89 mL/min (>89); Glucose,Random 153 mg/dL (74-106); Potassium 4.1 meq/L (3.5-5.1)
[2018-01-09 16:17] LABS: Sodium 123 meq/L (136-145)
[2018-01-09] MEDS ORDERED: Sod Chloride 0.9% Inj 1,000 ML IV.CONT SCH (19:15)
[2018-01-09 22:52] LABS: Anion Gap 5 meq/L (5-15); Blood Urea Nitrogen 16 mg/dL (7-18); Calcium 7.1 mg/dL (8.5-10.1); Carbon Dioxide 35.7 meq/L (21.0-32.0); Chloride 83 meq/L (98-107); Glomerular Filtration Rate Greater Than 89 mL/min (>89); Glucose,Random 137 mg/dL (74-106); Potassium 4.2 meq/L (3.5-5.1)
[2018-01-09 22:57] LABS: Sodium 124 meq/L (136-145)
[2018-01-09 23:10] LABS: Albumin 2.7 g/dL (3.4-5.0); Calcium-Albumin Corrected 8.1 mg/dL (8.5-10.1)
[2018-01-09] MEDS ORDERED: Sodium Chloride 1 GM Tablet PO ONE (23:36)
--- NOTE | 2018-01-10 07:47 | P.PNIM ---
Subjective Interval history: Follow up shortness of breath, hypoxia, CLL and bone metastasis and hyponatremia. Patient seen and examined, lying in bed comfortably in nad. Patient states that he did have some confusion overnight. He states that he wants to continue labs for the next couple days to see if his sodium improves. Spoke to hospice yesterday, supposedly patient states he will go to care center if agreeable to hospice and then home, he expresses concern that his is unable to care for him if he goes home. Awaiting report from hospice and for to arrive. Will continue hyponatremia work up as well as awaiting labs for psa and myeloma workup. Physical Exam Vital signs: Vital Signs 01/09/18 08:00 01/09/18 08:21 01/09/18 11:51 Temperature 96.6 F L Pulse Rate 74 74 72 Respiratory Rate 20 20 20 Blood Pressure 125/63 Pulse Oximetry 100 01/09/18 12:00 01/09/18 15:52 01/09/18 16:00 Temperature 99.1 F 97.7 F Pulse Rate 63 60 61 Respiratory Rate 17 20 17 Blood Pressure 125/59 L 130/63 Pulse Oximetry 100 98 01/09/18 19:40 01/09/18 20:00 01/09/18 23:41 Temperature 98.5 F Pulse Rate 67 74 78 Respiratory Rate 20 18 20 Blood Pressure 132/57 L Pulse Oximetry 99 98 01/10/18 00:00 01/10/18 03:28 01/10/18 04:00 Temperature 97.9 F 96.8 F L Pulse Rate 79 78 80 Respiratory Rate 18 20 18 Blood Pressure 121/58 L 122/60 Pulse Oximetry 97 94 L 01/10/18 07:26 Temperature Pulse Rate 74 Respiratory Rate 22 Blood Pressure Pulse Oximetry 92 L Intake & Output 01/09/18 01/10/18 01/10/18 18:59 06:59 18:59 Intake Total 1160 / 1160 440 / 440 Output Total 550 / 550 Balance 1160 / 1160 -110 / -110 Weight 94 kg Intake: IV 200 / 200 200 / 200 Azactam Inj 1,000 MG In NS Inj 200 / 200 200 / 200 100 ML @ 200 mls/hr IV.SIG Q8H ROSELYN Rx#:[id number] Oral 960 / 960 240 / 240 Output: Urine 550 / 550 Other: # Voids 900 3 Date of Last Bowel Movement 01/08/18 # Bowel Movements 0 Narrative: GENERAL: Well-developed, well-nourished patient in NAD. On supplemental o2. No pain. SKIN: Warm and dry. No rash. Right chest port in place, clean dry and intact. Sacrum red, no open sore. Tender to touch. HEAD: Normocephalic. Atraumatic. EYES: Pupils equal and round. No scleral icterus. No injection or drainage. ENT: No nasal bleeding or discharge. Mucous membranes pink and moist. NECK: Supple. Trachea midline. CARDIOVASCULAR: Regular rate and rhythm. S1, S2 noted. RESPIRATORY: Crackles in posterior lower base. Breath sounds equal bilaterally. Barrel chest. GASTROINTESTINAL: Abdomen soft, non-tender. Normoactive bowel sounds x4. MUSCULOSKELETAL: No obvious deformities. Extremities without clubbing, cyanosis. Bilateral lower extremity edema 3+. NEUROLOGICAL: Awake and alert. No obvious cranial nerve deficits. Motor grossly within normal limits. 4/5 muscle strength in bilateral upper and lower extremities. Normal speech. PSYCHIATRIC: Appropriate mood and affect; insight and judgment normal. Results - Labs CBC & Chem 7: 01/09/18 14:36 01/09/18 21:10 Laboratory Results - last 24 hr 01/09/18 01/09/18 01/09/18 14:36 14:36 21:10 CBC w Diff Slide review pending WBC 17.2 H RBC 2.50 L Hgb 7.6 L Hct 23.5 L MCV 94.1 MCH 30.4 MCHC 32.3 RDW 15.0 Plt Count 102 L MPV 7.6 Neut % (Auto) 18.5 Lymph % (Auto) 73.9 H [place] % (Auto) 3.5 Eos % (Auto) 0.1 Baso % (Auto) 4.0 H Neut # (Auto) 3.2 Lymph # (Auto) 12.7 H [place] # (Auto) 0.6 Eos # (Auto) 0.0 Baso # (Auto) 0.7 H WBC Differential Manual diff final Seg Neuts % (Manual) 32 Lymphocytes % (Manual) 64 H Monocytes % (Manual) 4 Abs Neuts (Manual) 5.5 Differential Comment . Platelet Estimate Low L Platelet Morphology Normal Sodium 123 L* 124 L* Potassium 4.1 4.2 Chloride 82 L 83 L Carbon Dioxide 36.1 H 35.7 H Anion Gap 5 5 BUN 15 16 Creatinine 0.50 L 0.51 L Estimated GFR Greater than 89 Greater than 89 Random Glucose 153 H 137 H Osmolality 261 L Calcium 7.6 L 7.1 L* Calcium Adj for Albumin 8.1 L B-Natriuretic Peptide Albumin 2.7 L TSH 3.380 01/09/18 21:10 CBC w Diff WBC RBC Hgb Hct MCV MCH MCHC RDW Plt Count MPV Neut % (Auto) Lymph % (Auto) [place] % (Auto) Eos % (Auto) Baso % (Auto) Neut # (Auto) Lymph # (Auto) [place] # (Auto) Eos # (Auto) Baso # (Auto) WBC Differential Seg Neuts % (Manual) Lymphocytes % (Manual) Monocytes % (Manual) Abs Neuts (Manual) Differential Comment Platelet Estimate Platelet Morphology Sodium Potassium Chloride Carbon Dioxide Anion Gap BUN Creatinine Estimated GFR Random Glucose Osmolality Calcium Calcium Adj for Albumin B-Natriuretic Peptide 360 H Albumin TSH Microbiology 01/07/18 12:55 Blood - Other Aerobic Blood Culture - Preliminary No growth in 2 days 01/07/18 12:55 Blood - Other Anaerobic Blood Culture - Preliminary No growth in 2 days 01/07/18 13:35 Blood - Other Aerobic Blood Culture - Preliminary No growth in 2 days 01/07/18 13:35 Blood - Other Anaerobic Blood Culture - Preliminary No growth in 2 days Assessment and Plan - Assessment (1) CLL (chronic lymphocytic leukemia) Code(s): C91.90 - Lymphoid leukemia, unspecified not having achieved remission Status: Acute (2) Dyspnea on minimal exertion Code(s): R06.09 - Other forms of dyspnea Status: Acute (3) Hyponatremia Code(s): E87.1 - Hypo-osmolality and hyponatremia Status: Acute (4) Generalized muscle weakness Code(s): M62.81 - Muscle weakness (generalized) Status: Acute - Plan This is an 82-year-old male patient who presented to the ED with complaints of worsening shortness of breath especially with exertion. Acute on chronic respiratory failure, on home oxygen - 2L [place] Moderate left pleural effusion Community-acquired pneumonia History of COPD -Presents with a 1-week complaint of worsening shortness of breath with exertion and worsening bilateral lower extremity swelling. BNP on presentation 176. -CXR reviewed showing interstitial changes. On exam, crackles are present. Appears to be fluid overloaded. -Consulted garbage collector, recommendations and input appreciated, does not believe it to be congestive heart failure but venous insufficiency. -Will dc diuretics. Lasix 20 mg IV given in ED. Has diuresed well with significant improvement. Will continue to monitor intake and output. Strict I& O. Fluid restriction 1.5L daily. -ECHO ordered and showing adequate EF. PAP 29. -Does not follow with a pin machine tender, has been placed on home O2 this year. Unknown reason why per patient. -Consult placed to pin machine tender, input and recommendations appreciated. Will need a left thoracentesis if patient wishes, although INR needs to be less than 1.5. Will hold Coumadin. INR 1.8 today. -Lower extremity ultrasound significant for bilateral DVT. -Sputum culture ordered. Legionella and streptococcus negative. -Was placed on Levaquin in ED. Continued. Added Azactam. Consult to ID has been canceled, patient is wanting hospice measures. -Duonebs as needed for shortness of breath. -Blood cultures negative to date. -Chest CT ordered showing pleural effusions and possible left lower lobe pneumonia. History of CLL Chronic leukocytosis -Consulted Dr. Bains, whom he follows with outpatient. Appreciate input and recommendations. -Spoke to oncologist today regarding CT chest findings of questions metastatic disease with multiple lytic lesions. -Abdominal CT showing metastatic disease. Dr. Caban, oncologist is ordered prostate markers as well as initiating myeloma workup. -Hospice is likely the route patient wants to go. Will arrange meeting with and patient. History of renal cell carcinoma status post nephrectomy -Stable kidney function. -Avoid nephrotoxins. -Monitor closely especially being on diuretics. Bilateral lower extremity DVT History of DVT History of antiphospholipid syndrome -Holding Coumadin for possible thoracentesis if patient wishes. For therapeutic reasons. -Lower extremity US showing bilateral lower extremity DVT despite Coumadin therapy with therapeutic INR. -Coumadin on hold. Oncology following, will hold anticoagulation for now and will monitor INR. DVT Prophylaxis: SCDs, Coumadin Hospice has been consulted and has seen patient. Per patient will defer for a couple days until he decides. Discharge Planning: Hospice consulted. Patient wants to wait a couple days and continue blood work and give time to make a decision.
[2018-01-10 08:56] LABS: INR 1.6 Ratio; Prothrombin Time 15.9 sec (9.8-11.6)
[2018-01-10 08:57] LABS: Baso % (Auto) 0.1 % (0.0-2.0); Eos % (Auto) 0.3 % (0.0-4.0); Hematocrit 21.9 % (39.0-51.0); Hemoglobin 7.2 gm/dL (13.0-17.0); Lymph # (Auto) 10.4 th/mm3 (1.0-4.8); Lymph % (Auto) 77.2 % (9.0-44.0); Mean Corpuscular Hemoglobin 30.8 pg (27.0-34.0); Mean Corpuscular Volume 93.1 fL (80.0-100.0); Mean Platelet Volume 7.7 fL (7.0-11.0); Mono # (Auto) 0.3 th/mm3 (0.0-0.9); Mono % (Auto) 2.4 % (0.0-8.0); Neut # (Auto) 2.7 th/mm3 (1.8-7.7); Platelet Count 94 th/mm3 (150-450); Red Blood Count 2.35 mil/mm3 (4.50-5.90); Red Cell Distribution Width 14.8 % (11.6-17.2); White Blood Count 13.4 th/mm3 (4.0-11.0)
[2018-01-10 10:33] LABS: Lymphocytes 73 % (9-44); Monocytes 2 % (0-8)
[2018-01-10 10:36] LABS: Ovalocytes 1+; Platelet Morphology Normal (Normal); Smudge Cells Present
[2018-01-10 12:31] LABS: Chloride 85 meq/L (98-107); Potassium 4.2 meq/L (3.5-5.1); Sodium 125 meq/L (136-145)
[2018-01-10 12:33] LABS: Calcium 7.5 mg/dL (8.5-10.1)
[2018-01-10 12:34] LABS: Anion Gap 4 meq/L (5-15); Blood Urea Nitrogen 16 mg/dL (7-18); Carbon Dioxide 36.1 meq/L (21.0-32.0); Glucose,Random 129 mg/dL (74-106)
[2018-01-10 12:37] LABS: Glomerular Filtration Rate Greater Than 89 mL/min (>89)
[2018-01-10] MEDS ORDERED: Polyethylene Glycol 3350 17 GM Packet PO ONE (13:31)
[2018-01-10 16:37] VITALS: BP 120/58; PULSE 76; RESP 17; TEMP 97.4
[2018-01-10 20:27] VITALS: O2SAT 95
== END 2018-01-10 20:58 | disposition hospice, inpatient (51) ==
LOC: PHED 11:47 → PHEDA 11:47 → PH3 16:25
PROVIDERS: ADMIT Internal Medicine; ATTEND Internal Medicine